=== PATIENT | female | born 1940 | race Caucasian/White ===

== ENCOUNTER 2017-03-01 21:51 | Observation (INO) | payer MEDICARE, OTHER ==
[~2017-03-01] VITALS: Ht 166.4 cm; Wt 71.5 kg
[2017-03-01] VITALS (9 sets, daily range): BP systolic 125–172; BP diastolic 82–104; PULSE 29–100; RESP 17–29; O2SAT 96–99
[2017-03-01 16:40] LABS: BASOPHILS % (AUTO) 0.6 % (0-3); EOSINOPHILS % (AUTO) 1.9 % (0-5); Mean Corpuscular Hemoglobin 33.1 pg (27.0-35.0); Mean Corpuscular Volume 92.4 fL (81-100); NEUTROPHILS % (AUTO) 59.6 % (40-74); Platelet Count 350 bil/L (150-400)
[2017-03-01 17:05] LABS: TROPONIN T < 0.010 ug/L (0.0-0.011)
[2017-03-01 17:11] LABS: Magnesium 1.9 mg/dL (1.6-2.6)
--- NOTE | 2017-03-01 17:27 | ED.REPORT ---
HPI-Syncope Date of Service Mar 01, 2017 ED Provider: Abner Garcia MD This is a 76-year-old female with history of hypertension and diabetes, who presents for almost passing out. She states for the last 2 weeks she has been feeling like passing out whenever she stands and is relieved with lying down. Her symptoms are reproducible with changing position from a lying to sitting position or sitting to standing position. Nothing has seemed to make it better except for lying back down. She has not had anything like this in the past. She mentions having chills periodically for the last week. Denies fever, nausea , vomiting, chest pain, shortness of breath, coughs, abdominal pain, diarrhea, and constipation. She does note she has been having a dry mouth and dry skin lately. Nursing Notes Stated Complaint: DIZZINESS Chief Complaint: General Complaint Nursing Notes Reviewed: Yes Allergies: Coded Allergies: Penicillins (Verified Allergy, Mild, RASH, 03/01/17) Uncoded Allergies: SKELETAL MUSCLE RELAXANTS (Allergy, Unknown, 07/28/04) PASSES OUT "BREAKS OUT" Scheduled Citalopram (Citalopram) 20 Mg Tablet 20 MG PO DAILY Fosinopril Sodium (Fosinopril Sodium) 40 Mg Tablet 60 MG PO DAILY Gabapentin (Gabapentin) 600 Mg Tablet 600 MG PO 6 TIMES DAILY Triamcinolone Acet (Triamcinolone Acetonide Ointment) 1 Applic/0.25 Gm Oint 1 APPLIC TOP BID Scheduled PRN Prochlorperazine Maleate (Prochlorperazine) 10 Mg Tablet 10 MG PO Q8 PRN PRN For Nausea/Vomiting oxyCODONE-Acetaminophen 10-325 mg (oxyCODONE-Acetaminophen 10-325 mg) 1 Each Tablet 1 TABLET PO Q8H PRN PRN For Pain General Time Seen by Provider: 16:30 Chief Complaint [place] faint Syncope Description: Frequent recent episodes Hx Obtained From: Patient Past Medical History Past Medical History Chronic back pain- Administers Morphine and Oxycodone daily Hypertension, diabetes Reports: Diabetes mellitus, Hypertension Past Surgical History 6 inches of colon removed after diagnosed with diverticulitis. Smoking History Current Every Day Smoker Social History Alcohol Use: Denies alcohol use Ambulatory Status Independent Review of Systems Constitutional: Reports: Chills, Denies: Fever Cardiovascular: Denies: Chest pain GI: Denies: Abdominal pain, Constipation, Diarrhea, Nausea, Vomiting Neurologic: Denies: Confusion, Headache Complete sys rev & neg: except as marked. Physical Exam Initial Vital Signs Vital Signs (First) Date Time Temp Pulse Resp B/P Pulse Ox O2 Delivery O2 Flow Rate FiO2 03/01/17 16:23 37.0 97 24 144/93 98 Room Air Initial VS: Reviewed General/Constitutional: Awake, Alert, No acute distress, Not toxic appearing Respiratory / Chest: Breath sounds NL, Breath sounds = bilat, No respiratory distress, No wheezing Cardiovascular: Heart rate NL, Regular rhythm, Heart sounds NL, No murmurs Lower Extremity / Pelvis / MS: No swelling Neurologic: Oriented X3, Speech NL, CN II - XII intact Head / Eyes: Atraumatic, Normocephalic, PERRL Abdomen: Soft, Non-tender, No guarding, BS normoactive Interpretation & Diagnostics Lab Results Interpretation Result Diagram: 03/01/17 1636 03/01/17 1636 Test 03/01/17 16:36 03/01/17 18:47 03/01/17 19:00 White Blood Count 9.6th/mm3 (3.8-10.1) Red Blood Count 5.13mil/mm3 (3.90-5.20) Hemoglobin 17.0g/dL (12.0-15.6) Hematocrit 47.4% (35.0-46.0) Mean Corpuscular Volume 92.4fL (81-100) Mean Corpuscular Hemoglobin 33.1pg (27.0-35.0) Mean Corpuscular Hemoglobin Concent 35.9% (32.0-37.0) Red Cell Distribution Width 11.7% (12.3-15.4) Platelet Count 350bil/L (150-400) Neutrophils (%) (Auto) 59.6% (40-74) Lymphocytes (%) (Auto) 28.5% (14-46) Monocytes (%) (Auto) 9.0% (4-12) Eosinophils (%) (Auto) 1.9% (0-5) Basophils (%) (Auto) 0.6% (0-3) Sodium Level 136mEq/L (134-144) Potassium Level 3.9mEq/L (3.5-5.2) Chloride Level 97mEq/L (97-108) Carbon Dioxide Level 21mmol/L (18-29) Blood Urea Nitrogen 30mg/dL (8-27) Creatinine 0.73mg/dL (0.57-1.00) Estimat Glomerular Filtration Rate 111mL/min (>59) Glucose Level 183mg/dL (60-99) Calcium Level 9.7mg/dL (8.5-10.1) Magnesium Level 1.9mg/dL (1.6-2.6) Total Bilirubin 0.5mg/dL (0.0-1.2) Aspartate Amino Transf (AST/SGOT) 19U/L (0-50) Alanine Aminotransferase (ALT/SGPT) 23U/L (0-32) Alkaline Phosphatase 93U/L (25-165) Troponin T < 0.010ug/L (0.0-0.011) Total Protein 7.5g/dL (6.4-8.4) Albumin 4.3g/dL (3.4-5.0) Thyroid Stimulating Hormone (TSH) 1.460uIU/mL (0.450-4.500) Hold Urine Received (Received) Urine Color Yellow (YELLOW) Urine Appearance Clear (CLEAR,HAZY) Urine pH 5.5 (5.0-8.0) Urine Specific [place] 1.020 (1.003-1.035) Urine Protein 30mg/dL (NEG,TRACE) Urine Glucose (UA) Negativemg/dL (NEGATIVE) Urine Ketones Tracemg/dL (NEGATIVE) Urine Occult Blood Negative (NEGATIVE) Urine Nitrite Negative (NEGATIVE) Urine Bilirubin Negative (NEGATIVE) Urine Urobilinogen Normalmg/dL (NORMAL) Urine Leukocyte Esterase Small (NEGATIVE) Urine RBC 0-2/hpf (0-2) Urine WBC 6-10/hpf (0-5) Urine Epithelial Cells Moderate/hpf (NONE-MOD) Urine Crystals None seen (NONE SEEN) Urine Bacteria Few/hpf (NONE-FEW) Urine Hyaline Casts None/lpf (NONE) Urine Granular Casts None seen (NONE SEEN) Urine Waxy Casts None seen (NONE SEEN) Urine Red Blood Cell Casts None seen (NONE SEEN) Urine White Blood Cell Casts None seen (NONE SEEN) Urine Mucus None seen (None Seen) Urine Trichomonas None seen (NONE SEEN) Urine Yeast None (NONE SEEN) Urinalysis Comment None Urine Culture Reflexed Indicated Re-Eval/Medical Decision Med Decision/Clinical Course This is 76-year-old female with history of diabetes and hypertension who presents for near syncopal episode associated with changing positions. She does not have any focal symptoms and her symptoms are reproducible which was noted when checking orthostatic vital signs. This is likely related to orthostatic hypotension secondary to dehydration. 1 L normal saline was given and she did not have any improvement in her symptoms. Given this is a new finding for her, would like to admit her to the hospital for observation. Re-Evaluation/Progress : )( Re-Eval Neurologic Exam: Alert, Oriented X3 Patient Status: Condition unchanged Evaluation: Lungs clear Re-Evaluation/Progress Note: Patient was reevaluated after 1 L normal saline given. He did not have any improvement in her symptoms. Consultation : Referral / Consult Name: Reuben Zayas MD Consulted With: Hospitalist Dairy Products Maker: Agrees with plan, Accepts admit Discharge & Departure Impression: Primary Impression: Orthostatic dizziness Disposition: ADMITTED TO HOSPITAL Discharge Condition All VS Reviewed: Yes Condition: Stable Referrals: Wilda Kan MD (PCP) Attending Statement I personally saw this patient with Dr Smith on 03/01. agree with above, not also she is on an KEVAN I which is likely contributing. No evidence of sepsis or acute bleeding. Reuben Smith DO Mar 01, 2017 17:24 Abner Garcia MD Mar 02, 2017 00:06
[2017-03-01 19:28] LABS: APPEARANCE,URINE CLEAR (CLEAR,HAZY); COLOR,URINE YELLOW (YELLOW); PH,URINE 5.5 (5.0-8.0)
[2017-03-01 19:29] LABS: OCCULT BLOOD,URINE NEGATIVE (NEGATIVE); UROBILINOGEN,URINE NORMAL (NORMAL)
--- NOTE | 2017-03-01 20:32 | PCM.HPMED ---
Subjective Date of Service Mar 01, 2017 Primary Provider: Admitting Physician: Primary Care Physician: Rahat Attending Physician: Chief Complaint: Patient is a 76-year-old female with a medical history significant for diabetes type II, hypertension, and chronic back pain presents with near syncope. History of Present Illness: Per patient, reports continued dizziness and lightheadedness whenever patient transition from sitting to standing position. Patient never had this before, patient denies any chest pain, palpitation, or shortness of breath. Yesterday, patient reports weakness the knee when standing up and collapsed onto the floor. Patient maintained consciousness throughout and did not hit head or suffer any other trauma as she fell. No bowel or bladder incontinence. She states that symptoms started about 2-3 weeks ago worsened within the past 2-3 days. Patient denies taking any new medication, and in fact has not been taking any of her medication in the past 3 days. Patient does admits to low fluid intake, often just a 12 ounce bottle water daily. Patient denies any weight loss weight, and stiffness, muscle rigidity. No history of Parkinson's disease. In the ED, patient was positive for orthostatic hypotension, all with CBC positive for hemoglobin 17 and hematocrit 47.4, additionally CMP positive for only BUN of 30/creatinine 0.73. TSH 1.46 normal. EKG normal sinus with signs of left ventricular hypertrophy. Patient was given 1 L of normal saline without symptomatic improvements, and thus admits patients to observation. Review of Systems: A comprehensive review of systems was conducted with the patient and found to be negative except as above in the History of Present Illness. Allergies Coded Allergies: Penicillins (Verified Allergy, Mild, RASH, 03/01/17) Uncoded Allergies: SKELETAL MUSCLE RELAXANTS (Allergy, Unknown, 07/28/04) PASSES OUT "BREAKS OUT" Home Medications Based upon medical reconciliation Citalopram 20 mg daily Fosinopril 60 mg daily Gabapentin 600 mg q.4.h Oxycodone acetaminophen 10 mg 325 mg every 8 hours as needed Prochlorperazine 10 mg every 8 hours as needed PMH Diabetes type II Hypertension Chronic back pain Tobacco use disorder Depression Diverticulitis Surgical History Partial colectomy Family History Mother secondary to asthma Father secondary to prostate cancer Social History Hx Alcohol Use: No Hx Substance Use: No Smoking Status: Current Every Day Smoker (15 years 2 packs daily) Living Arrangement: Alone Exam Vital Signs Vital Sign - Last Date Time Temp Pulse Resp B/P Pulse Ox O2 Delivery O2 Flow Rate FiO2 03/01/17 20:14 37.0 88 27 148/96 99 Room Air Exam General: No acute distress, appropriately interactive HEENT: Normocephalic, atraumatic. PERRLA, EOMI, Anicteric sclerae, dry mouth Neck: No lymphadenopathy or thyromegaly. No JVD, No bruits. Cardiovascular: Regular rate and rhythm with no murmurs, rubs, or gallops appreciated Pulmonary: b/l air sound with no crackles, wheezes, or rhonchi. no use of accessory muscles. Abdomen: +Bowel sound, Soft, nontender, nondistended. Extremities: No clubbing or cyanosis, no lymphedema, no b/l lower leg edema Skin: Normal temperature and texture; no rash. No visualized skin ulcer. Decreased skin turgor Neurological: CN II-VII grossly intact, moving equally on all 4 extremities, heel to lyons negative, [id number]-[id number] negative, no cogwheel rigidity Psychiatric: Normal mood and affect. AOx3 Lab and Diagnostics Result Diagram: 03/01/17 1636 03/01/17 1636 Assessment & Plan Patient is a 76-year-old female with medical history significant for diabetes type II, hypertension, and chronic back pain admitted for near syncope, orthostatic hypotension. Near syncope, present on admission, active -Likely dehydration, possible autonomic dysregulation, endocrine related, medication related -Labs TSH, vitamin B12, A1c ordered -Echocardiogram in a.m., place on telemetry -holding home gabapentin 600mg Q4H per med rec. Dehydration -decrease skin turgor, dry mouth, BUN/Cr >20 -Start NS 100cc/hr. received 1L NS in ED Diabetes Type II, diet control -Lispro low-dose sliding scale -A1c pending Hypertension -Continue home fosinopril Depression -Cont home citalopram Chronic back pain -Percocet 5-325mg PRN -holding gabapentin as above CODE STATUS: Full code DVT prophylaxis heparin subcutaneous Patient Status: Patient is admitted under observation status with expected length of stay LESS than 2 midnights due to severity of presenting symptoms, risk of adverse event, and complexity of treatment plan. VTE Prophylaxis: Sub-Q Heparin (Unfractionated) Resuscitation Status: CPR: Attempt Resuscitation Ismael Davison DO Mar 01, 2017 20:32 Reuben Zayas MD Mar 02, 2017 19:09
[~2017-03-01 21:51] MED LIST: 0.9% Sodium Chloride 1,000 ML IV ONE; 0.9% Sodium Chloride 1,000 ML IV SCH; Alum-Mag Hydrox-Simeth 30 mL Suspension PO PRN; CITA20TA11 PO; FOSI40TA2 PO; GABA600T2 PO; Glucose 40% Oral Gel 15 Gm Tube PO PRN; KEN1O TOP; OXYC-466 PO; PROC10TA PO; Polyethylene Glycol (PEG) 17 Gm Powder PO PRN; oxyCODONE-Acetamin 5-325 mg Tablet PO PRN
[2017-03-01] MEDS ORDERED: Insulin LISPRO 300 Unit/3 mL Inj SUBQ SCH (22:00)
[2017-03-01] MEDS ORDERED: 0.9% Sodium Chloride 1,000 ML IV SCH (22:25)
[2017-03-02] VITALS (9 sets, daily range): BP systolic 111–168; BP diastolic 67–91; PULSE 68–95; RESP 16–18; O2SAT 96–98
[2017-03-02] MEDS: Heparin 5,000 Unit/mL Inj SUBQ SCH ×3 (00:33→16:57)
--- NOTE | 2017-03-02 06:28 | PCM.PNMED ---
Subjective Date of Service Mar 02, 2017 Subjective Patient is seen and examined. She says that she is slightly better after IV fluids but still very dizzy when she gets up. With the exception of this extreme dizziness her neurological exam is fairly normal. She states that she did not have issues with dizziness until 2-3 weeks ago when this all started, she feels that he has been getting worse since then. She was seen at [facility] prior to this, she does not recall being treated with anything. So, she came to the [facility] ER. Patient lives alone independently. Exam Vital Signs Vital Sign - Last Date Time Temp Pulse Resp B/P Pulse Ox O2 Delivery O2 Flow Rate FiO2 03/02/17 06:06 92 03/02/17 04:30 36.7 17 150/83 97 Room Air Intake and Output 03/01/17 03/01/17 03/02/17 Cumulative From/Thru 15:00 23:00 07:00 03/01/17 16:23 - 03/02/17 05:44 Intake Total 1000 ml 1395 ml 2395 ml Output Total 550 ml 550 ml Balance 1000 ml 845 ml 1845 ml Intake Oral 800 ml 800 ml IV Total 1000 ml 595 ml 1595 ml Output Urine Total 550 ml 550 ml # Bowel Movements 0 0 Exam Gen. appearance: To the dirt and on her feet nails have some dirt in them, microcytic, cooperative HEENT: Normocephalic, atraumatic Heart: Regular rate and rhythm no S3-S4 murmurs Lungs: Clear to auscultation no crackles or wheezes Abdomen soft nontender Extremities no swelling Musculoskeletal 4/5 weakness in lower extremities, 4+ out of 5 in finger general practice Neurological: Ani's patient was unable to perform because she was unable to stand up due to dizziness. CN II-12 grossly normal gagging is deferred Itxwxl-cm-iomy unremarkable alternating hands, yevz-ot-blww unremarkable, normal Babinski's, Achilles tendon reflexes are symmetric Psychological Psychiatric: No agitation or anxiety Eyes: Right sided nystagmus noted. Unable to tolerate Janey maneuver IVs and Medications IV Fluids #100 mL per hour Medications Reviewed: Medications were reviewed in detail Lab and Diagnostics Result Diagram: 03/01/17 1636 03/02/17 0192 X-Rays, CTs and MRIs PROCEDURE: MRA ANGIOGRAM HEAD WITHOUT CONTRAST ([id number]) INDICATIONS: dizziness IMPRESSION: No stenosis or occlusion. Dictated by: Chaparro Werner M.D. on 03/02/2017 at 12:08 Approved by: Chaparro Werner M.D. on 03/02/2017 at 12:12 Assessment & Plan Patient is a 76-year-old female with medical history significant for diabetes type II, hypertension, and chronic back pain admitted for near syncope, orthostatic hypotension. Near syncope, present on admission, active -Likely dehydration, possible autonomic dysregulation, endocrine related, medication related -Labs TSH (within normal), vitamin B12(high), A1c ordered (pend) -Echocardiogram in a.m., place on telemetry: "Interpretation Summary 1. Small left ventricular cavity size with mild proximal septal thickening and normal systolic function with an estimated EF of 60-65%" -Start gabapentin at 300 3 times a day less than her home dose she is a complaining of peripheral neuropathy, also elev BP -- MRI from this a.m. showed no concern for stenosis or stroke -- Positive for Right sided horizontal nystagmus -- Ordered vestibular Therapy with PT/OT Dehydration active present on admission -decrease skin turgor, dry mouth, BUN/Cr >20 -Start NS 100cc/hr. received 1L NS in ED Diabetes Type II, diet control chronic -- She states that she does not need to be on medications for this -Lispro low-dose sliding scale -A1c pending Hypertension chronic stable -Continue home lisinopril Depression chronic stable -Cont home citalopram Chronic back pain -Hold Percocet 5-325mg PRN -gabapentin as above CODE STATUS: Full code DVT prophylaxis heparin subcutaneous Patient Status: Patient is admitted under observation status with expected length of stay LESS than 2 midnights due to severity of presenting symptoms, risk of adverse event, and complexity of treatment plan. VTE Prophylaxis: Sub-Q Heparin (Unfractionated) VTE Mechanical Devices: Intermittant Pneumatic CD Resuscitation Status: CPR: Attempt Resuscitation Time spent 30 minutes Adilene Otoole DO Mar 02, 2017 06:28
[2017-03-02] MEDS: Insulin LISPRO 300 Unit/3 mL Inj SUBQ SCH ×4 (08:00→22:00)
[2017-03-02] MEDS ORDERED: FOSINOPRIL SODIUM PO SCH (08:30)
[2017-03-02] MEDS: 0.9% Sodium Chloride 1,000 ML IV SCH ×2 (08:33→20:40)
--- NOTE | 2017-03-02 12:14 | DRSVH ---
PROCEDURE: MRA ANGIOGRAM HEAD WITHOUT CONTRAST ([id number]) INDICATIONS: dizziness TECHNIQUE: Noncontrast axial 3-D [id number] MR angiogram, with 3-dimensional maximum intensity projection (M IP) reformats of the internal carotid arteries and posterior circulation then performed. COMPARISON: None. FINDINGS: Image quality: Excellent. Anterior circulation: Intracranial internal carotid arteries demonstrate normal size and intralumina l flow signal. The flow within the paired anterior cerebral arteries is normal and symmetric. The f low within the middle cerebral arteries is normal and symmetric. There is diffusely and bilaterally d iminutive appearance of the M2 branches of the middle cerebral arteries although appear grossly paten t. The anterior communicating and right posterior communicating arteries are seen. No stenoses, occl usions, or aneurysms. Posterior circulation: Visualized portions of the vertebral arteries demonstrate normal caliber, and join to form a normal appearing basilar artery. The flow within the posterior cerebral arteries is normal and symmetric. No stenoses, occlusions, or aneurysms. IMPRESSION: No stenosis or occlusion. Dictated by: Chaparro Werner M.D. on 03/02/2017 at 12:08 Approved by: Chaparro Werner M.D. on 03/02/2017 at 12:12
--- NOTE | 2017-03-02 14:53 | DRSVH ---
[facility] [address] [place] [address] Echocardiogram Report Name: RON JAY Study Date: 03/02/2017 Height: 65 in Hospital Exam Location: [facility] Weight: 154 lb Gender: Female BSA: 1.8 m2 : 1940 Age: 76 yrs BP: 150/83 mmHg Reason For Study: NEAR SYNCOPE History: SMOKER-CURRENT Ordering Physician: Performed By: Marlene Escalante Interpretation Summary 1. Small left ventricular cavity size with mild proximal septal thickening and normal systolic function with an estimated EF of 60-65% 2. Grossly normal right ventricular size and systolic function. The estimated right atrial pressure is low 3. No evidence for significant valvular pathology There is no old study for comparison Procedure: A two-dimensional transthoracic echocardiogram with color flow and Doppler was performed. The apical views were difficult to obtain and are suboptimal in quality. There is no prior echocardiogram noted for this patient. The patient was in normal sinus rhythm during the exam. Left Ventricle: Proximal septal thickening is noted. The left ventricular cavity is small. The ejection fraction is estimated to be 60-65%. There are no obvious focal wall motion abnormalities noted but poor endocardial definition reduces the sensitivity for the detection of such. Assessment of diastolic parameters indicates a relaxation abnormality of the left ventricle, consistent with normal filling pressures. Right Ventricle: The right ventricle is grossly normal size. The right ventricle is not well visualized but function appears grossly normal. Atria: The left atrium is not well visualized. Right atrium not well visualized. There is no Doppler evidence for an interatrial shunt. Mitral Valve: The mitral valve leaflets appear mildly thickened, but open well. There is no mitral regurgitation noted. Aortic Valve: The aortic valve is trileaflet. The aortic valve is slightly calcified. There is no aortic valve stenosis. No aortic regurgitation is present. Tricuspid Valve: The tricuspid valve is not well visualized, but is grossly normal. Pulmonary artery pressures cannot be estimated because of the lack of a measurable TR jet velocity. Pulmonic Valve: The pulmonic valve is not well visualized. There is trace pulmonic regurgitation. Great Vessels: The aortic root is normal size. The ascending aorta is normal in size. There is mild luminal irregularity and echogenicity in the abdominal aorta, suggestive of aortic atherosclerotic disease. The aortic arch is normal in size. The IVC is of normal diameter and collapses greater than 50% with a sniff. This suggests a low right atrial pressure of 3 mm Hg. Pericardium/ Pleura There is no pericardial effusion. MMode/2D Measurements & Calculations LVIDd: 3.7 cm IVC diam LVOT diam: 1.8 cm LV molina. diameter/BSA LVIDs: 2.2 cm : 1.3 cm AoV Openin.3 cm(cm/m^2): 2.1 FS: 41.0 % Ao root diam EPSS: 0.26 cm IVSd: 1.1 cm Aortic Jxn: 2.5 cm LVPWd: 0.93 cm asc Aorta Diam Ao Arch Diam (Prox Trans): 2.4 cm LV sys. diameter/BSA (cm/m^2): 1.2 Doppler Measurements & Calculations Ao V2 max MV E max al MV E/A: 0.59 PA V2 max : 168.2 cm/sec : 53.6 cm/sec Med Peak E' Al : 86.8 cm/sec Ao max PG MV A max al PA mean PG : 11.3 mmHg : 91.6 cm/sec E/E' med: 7.5 Ao mean PG MV P1/2t: 99.7 msec PA Accel Time : 0.06 sec LVOT Max Al : 106.3 cm/sec NIDIA(I,D): 1.9 cm sev ratio MV dec time MV P1/2t max al Ao V2 mean LV V1 max PG : 0.33 sec : 106.4 cm/sec MVA(P1/2t): 2.2 cm2 Ao V2 VTI: 29.2 cm LV V1 VTI NIDIA(V,D): 1.7 cm2 : 21.0 cm PA V2 mean NIDIA indexed to BSA : 54.5 cm/sec (cm^2/m^2): 1.1 Reading Physician:02:52 PM
[2017-03-02] MEDS: Ondansetron 2 mg/mL 2 mL Inj IVPUSH PRN (18:04)
[2017-03-03] VITALS (10 sets, daily range): BP systolic 104–165; BP diastolic 66–89; PULSE 67–91; RESP 16–20; O2SAT 95–96
[2017-03-03] MEDS ORDERED: oxyCODONE-Acetamin 5-325 mg Tablet PO ONE (01:00)
[2017-03-03] MEDS: Heparin 5,000 Unit/mL Inj SUBQ SCH ×3 (01:19→17:39)
[2017-03-03] MEDS: 0.9% Sodium Chloride 1,000 ML IV SCH ×2 (06:43→18:44)
[2017-03-03] MEDS: Insulin LISPRO 300 Unit/3 mL Inj SUBQ SCH ×4 (08:31→22:00)
--- NOTE | 2017-03-03 13:16 | PCM.PNMED ---
Subjective Date of Service Mar 03, 2017 Subjective Patient is seen and examined. She states she is slightly better. She is sitting up in bed eating her lunch. The contact her daughter earlier turns out that her daughter , and we do not have her son-in-law's number. Patient does not get seen by physical therapy. I was able to observe patient as she got up to go to the toilet/bedside commode, and she did not appear too wobbly. She has no other concerns Exam Vital Signs Vital Sign - Last Date Time Temp Pulse Resp B/P Pulse Ox O2 Delivery O2 Flow Rate FiO2 03/03/17 08:02 36.7 67 18 133/74 95 Room Air Intake and Output 03/02/17 03/02/17 03/03/17 Cumulative From/Thru 15:00 23:00 07:00 03/01/17 16:23 - 03/03/17 05:57 Intake Total 575 ml 924 ml 2232 ml 6126 ml Output Total 600 ml 1930 ml 3080 ml Balance 575 ml 324 ml 302 ml 3046 ml Intake Oral 520 ml 1000 ml 2320 ml IV Total 575 ml 404 ml 1232 ml 3806 ml Output Urine Total 600 ml 1930 ml 3080 ml # Bowel Movements 0 0 Exam Gen.: No acute distress, sitting up eating breakfast HEENT: Hirsutism Heart: Mild systolic murmur is present with radiation to axilla Lungs: Clear to auscultation no crackles or wheezes Abdomen: Soft nondistended Eyes: Horizontal nystagmus is present on the right side, however when you move the finger close to her nose she did not have this indicating that she may have some level of farsightedness. Neurological: No focal deficits Psych: No agitation Lab and Diagnostics Result Diagram: 03/03/17 0532 03/03/17 0532 X-Rays, CTs and MRIs PROCEDURE: MRA ANGIOGRAM HEAD WITHOUT CONTRAST ([id number]) INDICATIONS: dizziness IMPRESSION: No stenosis or occlusion. Dictated by: Chaparro Werner M.D. on 03/02/2017 at 12:08 Approved by: Chaparro Werner M.D. on 03/02/2017 at 12:12 Assessment & Plan Patient is a 76-year-old female with medical history significant for diabetes type II, hypertension, and chronic back pain admitted for near syncope, orthostatic hypotension. Near syncope, present on admission, active -Likely dehydration, possible autonomic dysregulation, endocrine related, medication related -Labs TSH (within normal), vitamin B12(high), A1c ordered (pend) -Echocardiogram in a.m., place on telemetry: "Interpretation Summary 1. Small left ventricular cavity size with mild proximal septal thickening and normal systolic function with an estimated EF of 60-65%" -Start gabapentin at 300 3 times a day less than her home dose she is a complaining of peripheral neuropathy, also elev BP -- Positive for Right sided horizontal nystagmus -- Ordered vestibular Therapy with PT/OT on 03/02, they have not yet seen the patient on 03/03. -- Patient states that she had positional vertigo, room spinning sensation in the past but not at this time. -- Yesterday's scan was ordered as MRA without contrast, there was no MRI of brain, this was ordered this morning -- Consult to over the phone, who recommends CT of brain and neck as well to make sure she does not have vertebral artery occlusions. This is also ordered Orthostatic hypotension, as evidenced by the vital signs last night -- Differential includes age, Central etiologies, diabetes uncontrolled -- Pursuing the central etiology as able. Echocardiogram did not show any concern for valvular dysfunction that would have caused her symptoms Dehydration active present on admission resolved -decrease skin turgor, dry mouth, BUN/Cr >20 at admission -IV fluids cut to 50 mL/h Diabetes Type II, diet control chronic -- She states that she does not need to be on medications for this -Lispro low-dose sliding scale -A1c pending -- Hyperglycemic on the months 03/03 Hypertension chronic stable -Continue home lisinopril Depression chronic stable -Cont home citalopram Chronic back pain -Hold Percocet 5-325mg PRN , she states she never takes too many of them -gabapentin as above CODE STATUS: Full code DVT prophylaxis heparin subcutaneous Patient Status: Patient is admitted under observation status with expected length of stay LESS than 2 midnights due to severity of presenting symptoms, risk of adverse event, and complexity of treatment plan. VTE Prophylaxis: Sub-Q Heparin (Unfractionated) VTE Mechanical Devices: Intermittant Pneumatic CD Resuscitation Status: CPR: Attempt Resuscitation Time spent 30 minutes Adilene Otoole DO Mar 03, 2017 08:38
--- NOTE | 2017-03-03 15:44 | DRSVH ---
PROCEDURE: CT ANGIO HEAD AND NECK (P) INDICATIONS: extreme dizziness, check vertebral vasc TECHNIQUE: Pre-contrast 4.5 mm thick sections acquired from the foramen magnum to the vertex. After the adminis tration of intravenous contrast, 1 mm thick sections acquired from the aortic arch through the [place]. Post-contrast 4.5 mm thick sections then re-acquired from the foramen magnum to the vert ex. 3-dimensional tyqzzcx-lkjyswpjn-mlocprtlit (MIP) and/or volume rendering reformats were acquired of the central intracranial vasculature and neck separately. For radiation dose reduction, the foll owing was used: automated exposure control, adjustment of mA and/or kV according to patient size. COMPARISON: None. FINDINGS: Image quality: Excellent. BRAIN: CSF spaces: Ventricles are normal in size and shape. Basal cisterns are patent. No extra-axial flu id collections. Brain: No midline shift. No intracranial bleeds or masses. King-white matter interface appears int act. Skull and face: Calvarium and facial bones appear intact, without suspicious lesions. Orbits appear normal. Sinuses: Sinuses and mastoids are clear. HEAD CT ANGIOGRAPHY: Anterior circulation: Intracranial internal carotid arteries are normal in size and flow. The flow within the paired anterior cerebral arteries is normal and symmetric. The flow within the middle cer ebral arteries is normal and symmetric. The anterior communicating artery is seen. No aneurysms are seen. Posterior circulation: Visualized portions of the vertebral arteries demonstrate normal caliber, and join to form a normal appearing basilar artery. Flow within the posterior cerebral arteries is norm al and symmetric. No aneurysms are seen. NECK CT ANGIOGRAPHY: Carotid system: The great vessels demonstrate a conventional anatomy as they arise from the aortic a rc. The origins of the common carotid arteries appear patent. The common carotid arteries demonstr ate normal caliber and courses. The bifurcation regions are both patent with hemodynamically insigni ficant calcified atheromatous plaque. The internal carotid arteries demonstrate normal calibers and courses. Posterior circulation: The origins of the vertebral arteries both appear widely patent. The more daugherty perior extracranial portions of both vertebral arteries also demonstrate normal courses and calibers. They join to form a normal appearing basilar artery. Soft tissues: Visualized neck soft tissues demonstrate no suspicious abnormalities. Biapical emphys nish. Bones: No suspicious bony lesions. Visualized cervical spine appears normally aligned. IMPRESSION: 1. No CT evidence of acute intracranial pathology. 2. Vascular structures of the neck and head are within normal limits. 3. Biapical emphysema. Dictated by: Wilman Sanchez M.D. on 03/03/2017 at 15:35 Approved by: Wilman Sanchez M.D. on 03/03/2017 at 15:43
--- NOTE | 2017-03-03 18:07 | DRSVH ---
PROCEDURE: MRI BRAIN WITHOUT CONTRAST ([id number]) INDICATIONS: dizziness TECHNIQUE: Noncontrast axial T1 spin echo, axial T2 fast spin echo, sagittal and axial FLAIR, coronal T2 fast sp in echo, axial gradient echo, axial diffusion and ADC through the brain. COMPARISON: CT angiogram from 03/03/2017. FINDINGS: Image quality: Excellent. CSF Spaces: Basal cisterns are patent. No extra-axial fluid collections. Ventricles are normal in size and shape. Brain: Scattered foci of increased T2 signal in the subcortical and periventricular white matter mos t consistent with sequelae of chronic benign ischemic change. No intracranial masses or hemorrhage. King/white matter interface is normal. Brainstem appears normal. Diffusion-weighted images demonstr ate no acute ischemic insult. No chronic ischemic insults. Normal intravascular flow voids are pres ent. Skull and face: Calvarium has normal marrow signal. Orbits appear normal. Sinuses: Sinuses and mastoids are clear. IMPRESSION: 1. No evidence of acute intracranial pathology including no evidence of acute infarction. 2. Increased T2 signal in the subcortical and periventricular white matter most consistent with a seq uelae of chronic benign ischemic change. Dictated by: Wilman Sanchez M.D. on 03/03/2017 at 18:01 Approved by: Wilman Sanchez M.D. on 03/03/2017 at 18:05
[2017-03-04 00:45] VITALS: BP 161/81; PULSE 73; RESP 18; O2SAT 95
[2017-03-04] MEDS: Heparin 5,000 Unit/mL Inj SUBQ SCH ×2 (00:53→08:50)
[2017-03-04 04:50] VITALS: BP 151/80; PULSE 68; RESP 18; O2SAT 95
[2017-03-04] MEDS: 0.9% Sodium Chloride 1,000 ML IV SCH ×2 (05:10→09:40)
[2017-03-04 08:34] VITALS: BP 144/85; PULSE 75; RESP 18; O2SAT 96
[2017-03-04] MEDS: Insulin LISPRO 300 Unit/3 mL Inj SUBQ SCH ×2 (08:49→12:32)
[2017-03-04] MEDS: Ondansetron 2 mg/mL 2 mL Inj IVPUSH PRN (08:49)
[2017-03-04 10:26] VITALS: PULSE 70
[2017-03-04] MEDS ORDERED: Insulin GLARgine 100 Unit/mL Syringe SUBQ ONE (10:45)
--- NOTE | 2017-03-04 10:53 | PCM.PNMED ---
Subjective Date of Service Mar 04, 2017 Subjective Patient is seen and examined. She is much better, moving around in her bed. She is also able to stand up without feeling unbalanced. Night team documented that she was able to get up and use the toilet several times. In the room she is able to do this in front of me. She states that she was never told she would have to be on medications for diabetes. States that her son-in-law Don can help her with providing rides but that is the level of support he provides. Patient's scans from yesterday are all negative neurological etiologies of her dizziness. Exam Vital Signs Vital Sign - Last Date Time Temp Pulse Resp B/P Pulse Ox O2 Delivery O2 Flow Rate FiO2 03/04/17 10:26 70 03/04/17 08:34 36.6 18 144/85 96 Room Air Intake and Output 03/03/17 03/03/17 03/04/17 Cumulative From/Thru 15:00 23:00 07:00 03/01/17 16:23 - 03/04/17 06:42 Intake Total 574 ml 918 ml 1818 ml 9436 ml Output Total 2700 ml 2600 ml 8380 ml Balance 574 ml -1782 ml -782 ml 1056 ml Intake Oral 840 ml 600 ml 3760 ml IV Total 574 ml 78 ml 1218 ml 5676 ml Output Urine Total 2700 ml 2600 ml 8380 ml # Voids 5 5 # Bowel Movements 0 0 0 Exam Gen.: No acute distress, sitting up In bed HEENT: Positive for hirsutism Heart: Regular rate and rhythm no S3-S4 murmurs Lungs: Clear to auscultation no crackles or wheezes Skin: Large area of chronic dermatitis changes as before mid thoracic back Extremities: 1+ pitting edema symmetric Neurological: Patient is able to do Romberg suggested a negative arm drift. No focal deficits Psychiatric: Negative for anxiety or agitation IVs and Medications Medications Reviewed: Medications were reviewed in detail Lab and Diagnostics Result Diagram: 03/03/17 0532 03/03/17 0532 X-Rays, CTs and MRIs PROCEDURE: MRA ANGIOGRAM HEAD WITHOUT CONTRAST ([id number]) INDICATIONS: dizziness IMPRESSION: No stenosis or occlusion. Dictated by: Chaparro Werner M.D. on 03/02/2017 at 12:08 Approved by: Chaparro Werner M.D. on 03/02/2017 at 12:12 Assessment & Plan Patient is a 76-year-old female with medical history significant for diabetes type II, hypertension, and chronic back pain admitted for near syncope, orthostatic hypotension. Near syncope, present on admission, improved -Likely dehydration, possible autonomic dysregulation, endocrine related, medication related (pain medications) -Labs TSH (within normal), vitamin B12(high), A1c ordered (pend) -Echocardiogram in a.m., place on telemetry: "Interpretation Summary 1. Small left ventricular cavity size with mild proximal septal thickening and normal systolic function with an estimated EF of 60-65%" -Start gabapentin at 300 3 times a day less than her home dose she is a complaining of peripheral neuropathy, also elev BP -- Positive for Right sided horizontal nystagmus -- Ordered vestibular Therapy with PT/OT on 03/02, they have not yet seen the patient on 03/03. -- Patient states that she had positional vertigo, room spinning sensation in the past but not at this time. -- 03/02 MRA without contrast, there was no MRI of brain, this was ordered 03/03 morning: "No evidence of acute intracranial pathology including no evidence of acute infarction, periventricular white matter most consistent with a sequelae of chronic benign ischemic change." -- Consult to over the phone on 03/[address] of brain and neck as well to make sure she does not have vertebral artery occlusions. This is also ordered:"Vascular structures of the neck and head are within normal limits. -- Reviewed patient's [facility] visit records from 02/15/17, it appears that the treated her for hyponatremia and dehydration. Reviewed PCP records from Dr. whitlock which showed she has been tapered off of morphine sulfate, and now just on oxycodone 3 times a day when necessary. It appears that she has a long history of opiate. Dependence but recently admitted to being herself off. -- No overnight monitoring events, discontinue telemetry -- On 03/04, wound care and physical therapy have not seen the patient yet. awaiting their recommendations prior to discharge planning, hospice social worker [facility] PTOT for support at home Orthostatic hypotension, improved after hydration -- Differential includes age, diabetes uncontrolled, and dehydration -- Pursuing the central etiology as able. Echocardiogram did not show any concern for valvular dysfunction that would have caused her symptoms Dehydration active present on admission resolved -decrease skin turgor, dry mouth, BUN/Cr >20 at admission -IV fluids are discontinued Diabetes Type II, diet control chronic uncontrolled -- She states that she does not need to be on medications for this -Lispro low-dose sliding scale -A1c 7.7 -- She can be put on metformin at the time of discharge, holding off today due to the CTA she had 03/03. Hypertension chronic stable -Continue home lisinopril -Blood pressure was elevated this morning likely due to not having full dose gabapentin, restarted the medication and full dose Depression chronic stable -Cont home citalopram Chronic back pain -Hold Percocet 5-325mg PRN , she states she never takes too many of them -gabapentin as above CODE STATUS: Full code DVT prophylaxis heparin subcutaneous Patient Status: Patient is admitted under observation status with expected length of stay LESS than 2 midnights due to severity of presenting symptoms, risk of adverse event, and complexity of treatment plan. VTE Prophylaxis: Sub-Q Heparin (Unfractionated) VTE Mechanical Devices: Intermittant Pneumatic CD Resuscitation Status: CPR: Attempt Resuscitation Time spent 30 minutes Adilene Otoole DO Mar 04, 2017 10:53
[2017-03-04 12:54] VITALS: BP 162/82; PULSE 75; RESP 18; O2SAT 96
[2017-03-04] MEDS ORDERED: oxyCODONE-Acetamin 5-325 mg Tablet PO SCH (14:30)
[2017-03-04] MEDS ORDERED: OXYC1TAB24 PO (16:29)
[2017-03-04] MEDS ORDERED: METF500T4 PO (16:29)
[2017-03-04] MEDS ORDERED: GABA300C PO (16:34)
--- NOTE | 2017-03-04 16:34 | PCM.DIMED ---
Discharge Instructions Date of Service Mar 04, 2017 Dates of Hospitalization Mar 01, 2017 at 23:17 Discharge Diagnosis Discharge Diagnosis Dizziness secondary to diabetes, dehydration and pain medications Medication Instructions Additional med instructions Please note that your oxycodone is cut in 07/09. Please note you can start metformin on 03/05/17. F/U BMP in one week F/U with your PCP in seven- ten days Please stay well hydrated, avoid quick movements. Please use compression stockings. Diet Discharge Diet: Heart Healthy, Diabetic Activity Discharge Activity: No restrictions Call your provider Call your provider for: Fever or Chills, Shortness of breath, Bleeding, Chest pain, Vomitting, Excessive diarrhea, Weakness (unilateral) Patient Instructions Follow-up plan F/U with PCP in 7-10 days F/U BMP in one week Adilene Otoole DO Mar 04, 2017 16:33
--- NOTE | 2017-03-04 21:18 | PCM.DC.MED ---
Discharge Summary Date of Service Mar 04, 2017 Dates of Hospitalization Date of Hospital Admission Mar 01, 2017 at 23:17 Date of Discharge: Mar 04, 2017 Providers: Admitting Physician: Reuben Zayas MD Primary Care Physician: Radha Attending Physician: Adilene Barragan DO Diagnosis at Time of Discharge Diagnosis at Time of Discharge Dizziness secondary to diabetes, dehydration and pain medications Procedures XRay, CTs & MRIs PROCEDURE: MRA ANGIOGRAM HEAD WITHOUT CONTRAST ([id number]) INDICATIONS: dizziness IMPRESSION: No stenosis or occlusion. Dictated by: Chaparro Werner M.D. on 03/02/2017 at 12:08 Approved by: Chaparro Wrener M.D. on 03/02/2017 at 12:12 - PROCEDURE: MRI BRAIN WITHOUT CONTRAST ([id number]) INDICATIONS: dizziness IMPRESSION: 1. No evidence of acute intracranial pathology including no evidence of acute infarction. 2. Increased T2 signal in the subcortical and periventricular white matter most consistent with a sequelae of chronic benign ischemic change. Dictated by: Wilman Sanchez M.D. on 03/03/2017 at 18:01 Approved by: Wilman Sanchez M.D. on 03/03/2017 at 18:05 PROCEDURE: MRA ANGIOGRAM HEAD WITHOUT CONTRAST ([id number]) INDICATIONS: dizziness IMPRESSION: No stenosis or occlusion. Dictated by: Chaparro Werner M.D. on 03/02/2017 at 12:08 Approved by: Chaparro Werner M.D. on 03/02/2017 at 12:12 Brief History Per patient, reports continued dizziness and lightheadedness whenever patient transition from sitting to standing position. Patient never had this before, patient denies any chest pain, palpitation, or shortness of breath. Yesterday, patient reports weakness the knee when standing up and collapsed onto the floor. Patient maintained consciousness throughout and did not hit head or suffer any other trauma as she fell. No bowel or bladder incontinence. She states that symptoms started about 2-3 weeks ago worsened within the past 2-3 days. Patient denies taking any new medication, and in fact has not been taking any of her medication in the past 3 days. Patient does admits to low fluid intake, often just a 12 ounce bottle water daily. Patient denies any weight loss weight, and stiffness, muscle rigidity. No history of Parkinson's disease. In the ED, patient was positive for orthostatic hypotension, all with CBC positive for hemoglobin 17 and hematocrit 47.4, additionally CMP positive for only BUN of 30/creatinine 0.73. TSH 1.46 normal. EKG normal sinus with signs of left ventricular hypertrophy. Patient was given 1 L of normal saline without symptomatic improvements, and thus admits patients to observation. Hospital Course Patient is a 76-year-old female with medical history significant for diabetes type II, hypertension, and chronic back pain admitted for near syncope, orthostatic hypotension. Near syncope, present on admission, improved -Likely dehydration, possible autonomic dysregulation, endocrine related, medication related (pain medications) -Labs TSH (within normal), vitamin B12(high), A1c ordered (pend) -Echocardiogram in a.m., place on telemetry: "Interpretation Summary 1. Small left ventricular cavity size with mild proximal septal thickening and normal systolic function with an estimated EF of 60-65%" -Start gabapentin at 300 3 times a day less than her home dose she is a complaining of peripheral neuropathy, also elev BP -- Positive for Right sided horizontal nystagmus -- Ordered vestibular Therapy with PT/OT on 03/02, they have not yet seen the patient on 03/03. -- Patient states that she had positional vertigo, room spinning sensation in the past but not at this time. -- 03/02 MRA without contrast, there was no MRI of brain, this was ordered 03/03 morning: "No evidence of acute intracranial pathology including no evidence of acute infarction, periventricular white matter most consistent with a sequelae of chronic benign ischemic change." -- Consult to over the phone on 03/[address] of brain and neck as well to make sure she does not have vertebral artery occlusions. This is also ordered:"Vascular structures of the neck and head are within normal limits. -- Reviewed patient's [facility] ED visit records from 02/15/17, it appears that the treated her for hyponatremia and dehydration. Reviewed PCP records from Dr. whitlock which showed she has been tapered off of morphine sulfate, and now just on oxycodone 3 times a day when necessary. It appears that she has a long history of opiate. Dependence but recently admitted to being herself off. -- No overnight monitoring events, discontinue telemetry -- On 03/04, wound care has seen the patient and determined that patient had a burn from a heating pad overuse. We recommend distant light moisturizer no hydrocortisone - On 03/04, physical therapy has seen the patient and cleared her for home discharge by private vehicle. They noted no concern for BPPV. -- Patient is moving around well, not feeling dizzy, tolerating normal diet. I counseled her on cutting down in her pain medication further as her symptoms have indeed improved then pain medications were reduced. Patient is agreeable to this Orthostatic hypotension, improved after hydration and reduction in pain medication -- Differential includes age, diabetes uncontrolled, and dehydration -- Pursuing the central etiology as able. Echocardiogram did not show any concern for valvular dysfunction that would have caused her symptoms Dehydration active present on admission resolved -decrease skin turgor, dry mouth, BUN/Cr >20 at admission -IV fluid hydration is provided Diabetes Type II, diet control chronic uncontrolled -- She states that she does not need to be on medications for this -Lispro low-dose sliding scale -A1c 7.7 -- She can be put on metformin at the time of discharge, holding off today due to the CTA she had 03/03. -- Patient may start metformin on 03/05 Hypertension chronic stable -Continue home lisinopril -Blood pressure was elevated this morning likely due to not having full dose gabapentin, restarted the medication and full dose Depression chronic stable -Cont home citalopram Chronic back pain stable -Patient is asked to cut her pain meds to 3 times a day oxycodone 5/3 25 PO By mouth-gabapentin as above CODE STATUS: Full code DVT prophylaxis heparin subcutaneous Patient Status: Patient is admitted under observation status with expected length of stay LESS than 2 midnights due to severity of presenting symptoms, risk of adverse event, and complexity of treatment plan. Exam Vital Signs (Last) Date Time Temp Pulse Resp B/P Pulse Ox O2 Delivery O2 Flow Rate FiO2 03/04/17 13:10 Room Air 03/04/17 12:54 36.7 75 18 162/82 96 Exam Gen.: No acute distress, sitting up In bed HEENT: Positive for hirsutism Heart: Regular rate and rhythm no S3-S4 murmurs Lungs: Clear to auscultation no crackles or wheezes Skin: Large area of chronic changes over mid thoracic back Extremities: 1+ pitting edema symmetric Neurological: Pt is moving around w/o difficulty/dizziness. Neg Romberg. No focal deficits Psychiatric: Negative for anxiety or agitation Test 03/01/17 16:36 03/01/17 18:47 03/01/17 19:00 03/02/17 04:15 White Blood Count 9.6th/mm3 (3.8-10.1) Red Blood Count 5.13mil/mm3 (3.90-5.20) Mean Corpuscular Volume 92.4fL (81-100) Mean Corpuscular Hemoglobin 33.1pg (27.0-35.0) Mean Corpuscular Hemoglobin Concent 35.9% (32.0-37.0) Red Cell Distribution Width 11.7% (12.3-15.4) Platelet Count 350bil/L (150-400) Neutrophils (%) (Auto) 59.6% (40-74) Lymphocytes (%) (Auto) 28.5% (14-46) Monocytes (%) (Auto) 9.0% (4-12) Eosinophils (%) (Auto) 1.9% (0-5) Basophils (%) (Auto) 0.6% (0-3) Magnesium Level 1.9mg/dL (1.6-2.6) Total Bilirubin 0.5mg/dL (0.0-1.2) Aspartate Amino Transf (AST/SGOT) 19U/L (0-50) Alanine Aminotransferase (ALT/SGPT) 23U/L (0-32) Alkaline Phosphatase 93U/L (25-165) Troponin T < 0.010ug/L (0.0-0.011) Total Protein 7.5g/dL (6.4-8.4) Albumin 4.3g/dL (3.4-5.0) Vitamin B12 Level 1583pg/mL (211-946) Thyroid Stimulating Hormone (TSH) 1.460uIU/mL (0.450-4.500) Hold Urine Received (Received) Urine Color Yellow (YELLOW) Urine Appearance Clear (CLEAR,HAZY) Urine pH 5.5 (5.0-8.0) Urine Specific [place] 1.020 (1.003-1.035) Urine Protein 30mg/dL (NEG,TRACE) Urine Glucose (UA) Negativemg/dL (NEGATIVE) Urine Ketones Tracemg/dL (NEGATIVE) Urine Occult Blood Negative (NEGATIVE) Urine Nitrite Negative (NEGATIVE) Urine Bilirubin Negative (NEGATIVE) Urine Urobilinogen Normalmg/dL (NORMAL) Urine Leukocyte Esterase Small (NEGATIVE) Urine RBC 0-2/hpf (0-2) Urine WBC 6-10/hpf (0-5) Urine Epithelial Cells Moderate/hpf (NONE-MOD) Urine Crystals None seen (NONE SEEN) Urine Bacteria Few/hpf (NONE-FEW) Urine Hyaline Casts None/lpf (NONE) Urine Granular Casts None seen (NONE SEEN) Urine Waxy Casts None seen (NONE SEEN) Urine Red Blood Cell Casts None seen (NONE SEEN) Urine White Blood Cell Casts None seen (NONE SEEN) Urine Mucus None seen (None Seen) Urine Trichomonas None seen (NONE SEEN) Urine Yeast None (NONE SEEN) Urinalysis Comment None Urine Culture Reflexed Indicated Hemoglobin A1c 7.7% (4.8-5.6) Triglycerides Level 173mg/dL (0-149) Cholesterol Level 146mg/dL (100-199) LDL Cholesterol, Calculated 66.400mg/dL (0-99) VLDL Cholesterol 34.600mg/dL HDL Cholesterol 45mg/dL (>39) Cholesterol/HDL Ratio 3.24 (0.0-4.4) Cortisol 10.4ug/dL (.) Test 03/03/17 05:32 Hemoglobin 12.5g/dL (12.0-15.6) Hematocrit 35.7% (35.0-46.0) Sodium Level 140mEq/L (134-144) Potassium Level 3.7mEq/L (3.5-5.2) Chloride Level 103mEq/L (97-108) Carbon Dioxide Level 23mmol/L (18-29) Blood Urea Nitrogen 17mg/dL (8-27) Creatinine 0.85mg/dL (0.57-1.00) Estimat Glomerular Filtration Rate 93mL/min (>59) Glucose Level 248mg/dL (60-99) Calcium Level 8.2mg/dL (8.5-10.1) Discharge Medications Discharge Medications Citalopram (Citalopram) 20 Mg Tablet 20 MG PO DAILY (Reported) Fosinopril Sodium (Fosinopril Sodium) 40 Mg Tablet 60 MG PO DAILY (Reported) Gabapentin (Neurontin) 300 Mg Capsule 600 MG PO TID Prescribed by: ADILENE BARRAGAN DO Metformin (Metformin) 500 Mg Tablet 500 MG PO BID Prescribed by: ADILENE BARRAGAN DO oxyCODONE-Acetaminophen 5-325 mg (oxyCODONE-Acetaminophen 5-325 mg) 1 Each Tablet 1 TAB PO Q8H Prescribed by: ADILENE BARRAGAN DO Additional med instructions Please note that your oxycodone is cut in 07/09. Please note you can start metformin on 03/05/17. F/U BMP in one week F/U with your PCP in seven- ten days Please stay well hydrated, avoid quick movements. Please use compression stockings. Followup Plan Follow-up plan F/U with PCP in 7-10 days F/U BMP in one week Discharge Diet: Heart Healthy, Diabetic Discharge Activity: No restrictions Time spent Greater than 30 minutes was spent in preparation of discharge with greater than 50% of that time dedicated to patient counseling and coordination of care. Adilene Barragan DO Mar 04, 2017 16:36
== END 2017-03-04 17:30 | disposition home or self-care (01) ==
LOC: OSC 23:17
PROVIDERS: ADMIT Hospitalist; ATTEND Family Medicine
DX: R42 Dizziness and giddiness (principal); E11.9 Type 2 diabetes mellitus without complications; E86.0 Dehydration; I10 Essential (primary) hypertension; M54.9 Dorsalgia, unspecified; F32.9 Major depressive disorder, single episode, unspecified; Z79.891 Long term (current) use of opiate analgesic; F17.210 Nicotine dependence, cigarettes, uncomplicated

== ENCOUNTER 2017-03-08 19:22 | Inpatient (IN) | payer MEDICARE, OTHER ==
[~2017-03-08] VITALS: Ht 165.1 cm; Wt 69.0 kg
[~2017-03-08 19:22] MED LIST changes: -0.9% Sodium Chloride 1,000 ML IV ONE; -0.9% Sodium Chloride 1,000 ML IV SCH; -Alum-Mag Hydrox-Simeth 30 mL Suspension PO PRN; +GABA300C PO; -GABA600T2 PO; -Glucose 40% Oral Gel 15 Gm Tube PO PRN; -KEN1O TOP; +METF500T4 PO; -OXYC-466 PO; +OXYC1TAB24 PO; -PROC10TA PO; -Polyethylene Glycol (PEG) 17 Gm Powder PO PRN; -oxyCODONE-Acetamin 5-325 mg Tablet PO PRN
[2017-03-08 19:28] VITALS: BP 106/71; PULSE 107; RESP 18; O2SAT 99
--- NOTE | 2017-03-08 19:30 | ED.REPORT ---
HPI-Syncope Date of Service Mar 08, 2017 ED Provider: Eliu Garcia DO Pt is a 76 old female with a history of COPD, type II DM, and HTN who presents to the ED complaining of syncope onset 4 days ago. She complains of a ground level fall today secondary to her syncope that resulted in head pain. She denies chest pain, SOB, vomiting, diarrhea, fever, and dysuria. Per pt, she was walking to the bathroom when she fell, causing her to hit the left side of her head. The pt presented to [facility] on 03/01/17 and she was admitted for near syncope and dehydration. Nursing Notes Stated Complaint: FAINTING, FALLS Chief Complaint: General Complaint Nursing Notes Reviewed: Yes Allergies: Coded Allergies: Penicillins (Verified Allergy, Mild, RASH, 03/01/17) Uncoded Allergies: SKELETAL MUSCLE RELAXANTS (Allergy, Unknown, 07/28/04) PASSES OUT "BREAKS OUT" Scheduled Citalopram (Citalopram) 20 Mg Tablet 20 MG PO DAILY Fosinopril Sodium (Fosinopril Sodium) 40 Mg Tablet 60 MG PO DAILY Gabapentin (Neurontin) 300 Mg Capsule 600 MG PO TID Metformin (Metformin) 500 Mg Tablet 500 MG PO BID oxyCODONE-Acetaminophen 5-325 mg (oxyCODONE-Acetaminophen 5-325 mg) 1 Each Tablet 1 TAB PO Q8H General Time Seen by Provider: 19:50 Chief Complaint Other (syncope) Hx Obtained From: Patient Arrived By: Walk-in Onset Occurred: Just prior to arrival Symptom Duration: Duration unknown Location: : Head Quality: Painful Radiation: Does not radiate Severity: Current: Moderate Severity: Maximum: Moderate Recent Healthcare: Recent doctor visit, Recent hospitalization Similar Sx Previous: Yes Past Medical History Past Medical History Notes: Admitted to [facility] for dehydration and syncope Past Medical History Chronic back pain- Administers Morphine and Oxycodone daily Arthritis Reports: COPD, Diabetes mellitus (type II), Hypertension Reports: Depression Past Surgical History 6 inches of colon removed after diagnosed with diverticulitis. Family History Mother secondary to asthma Father secondary to prostate cancer Smoking History Current Every Day Smoker (15 years 2 packs daily) Social History Alcohol Use: Denies alcohol use Drug Use: Denies drug use Ambulatory Status Independent Review of Systems + Head pain Constitutional: Denies: Fever Respiratory: Denies: Shortness of breath Cardiovascular: Denies: Chest pain GI: Denies: Diarrhea, Vomiting Neurologic: Reports: Change LOC, Syncope Complete sys rev & neg: except as marked. Additional Review of Systems Female: Denies: Dysuria Physical Exam Initial Vital Signs Vital Signs (First) Date Time Temp Pulse Resp B/P Pulse Ox O2 Delivery O2 Flow Rate FiO2 03/08/17 19:28 36.7 107 18 106/71 99 Room Air Initial VS: Reviewed Neck: Supple, Full range of motion Abdomen / GI: Soft, Non-tender Upper Extremities: Vascular intact, Neuro intact Skin: Warm, Dry, No cyanosis Psychiatric: Mood/affect normal, Behavior normal General/Constitutional: Awake, Alert Respiratory / Chest: Atraumatic, Breath sounds NL, Breath sounds = bilat Cardiovascular: Heart rate NL, Regular rhythm, Heart sounds NL Lower Extremity / Pelvis / MS: Atraumatic, Full range of motion Neurologic: Oriented X3, Speech NL Slow to answer HEAD/EYES: Signs of left head trauma with swelling and abrasion. No diplopia. Mouth: Positive: Mucous membranes dry Interpretation & Diagnostics CT ANGIOGRAM CHEST: IMPRESSION: No acute occlusive PE. Atherosclerotic disease. Pulmonary emphysema , and mild accentuation of the pulmonary interstitium. Close clinical imaging surveillance for developing interstitial pulmonary edema advised. Other findings above. Transmitted to the ED at 22:19 by Florina Graves M.D. Lab Results Interpretation Result Diagram: 03/08/17193903/08/171939 Test 03/08/17 19:40 03/08/17 23:31 03/08/17 23:50 White Blood Count 10.4th/mm3 (3.8-10.1) Red Blood Count 5.04mil/mm3 (3.90-5.20) Hemoglobin 16.7g/dL (12.0-15.6) Hematocrit 47.4% (35.0-46.0) Mean Corpuscular Volume 94.0fL (81-100) Mean Corpuscular Hemoglobin 33.1pg (27.0-35.0) Mean Corpuscular Hemoglobin Concent 35.2% (32.0-37.0) Red Cell Distribution Width 12.0% (12.3-15.4) Platelet Count 394bil/L (150-400) Neutrophils (%) (Auto) 62.1% (40-74) Lymphocytes (%) (Auto) 24.1% (14-46) Monocytes (%) (Auto) 10.4% (4-12) Eosinophils (%) (Auto) 1.2% (0-5) Basophils (%) (Auto) 0.8% (0-3) Prothrombin Time 10.7sec (8.1-12.5) Prothromb Time International Ratio 1.00ratio D-Dimer 1.15mg/L FEU (<0.50) Sodium Level 136mEq/L (134-144) Potassium Level 4.3mEq/L (3.5-5.2) Chloride Level 94mEq/L (97-108) Carbon Dioxide Level 20mmol/L (18-29) Blood Urea Nitrogen 32mg/dL (8-27) Creatinine 1.05mg/dL (0.57-1.00) Estimat Glomerular Filtration Rate 73mL/min (>59) Glucose Level 162mg/dL (60-99) Calcium Level 10.0mg/dL (8.5-10.1) Magnesium Level 1.8mg/dL (1.6-2.6) Total Bilirubin 0.3mg/dL (0.0-1.2) Aspartate Amino Transf (AST/SGOT) 22U/L (0-50) Alanine Aminotransferase (ALT/SGPT) 26U/L (0-32) Alkaline Phosphatase 109U/L (25-165) Pro-B-Type Natriuretic Peptide 228.8pg/mL (0-738) Total Protein 7.4g/dL (6.4-8.4) Albumin 4.3g/dL (3.4-5.0) Troponin T 0.010ug/L (0.0-0.011) Urine Color Yellow (YELLOW) Urine Appearance Hazy (CLEAR,HAZY) Urine pH 5.0 (5.0-8.0) Urine Specific [place] 1.010 (1.003-1.035) Urine Protein Tracemg/dL (NEG,TRACE) Urine Glucose (UA) Negativemg/dL (NEGATIVE) Urine Ketones Tracemg/dL (NEGATIVE) Urine Occult Blood Trace (NEGATIVE) Urine Nitrite Negative (NEGATIVE) Urine Bilirubin Negative (NEGATIVE) Urine Urobilinogen Normalmg/dL (NORMAL) Urine Leukocyte Esterase Trace (NEGATIVE) Urine RBC 0-2/hpf (0-2) Urine WBC 11-50/hpf (0-5) Urine Epithelial Cells Moderate/hpf (NONE-MOD) Urine Crystals None seen (NONE SEEN) Urine Bacteria Few/hpf (NONE-FEW) Urine Hyaline Casts 5/20/lpf (NONE) Urine Granular Casts None seen (NONE SEEN) Urine Waxy Casts None seen (NONE SEEN) Urine Red Blood Cell Casts None seen (NONE SEEN) Urine White Blood Cell Casts None seen (NONE SEEN) Urine Mucus Present (None Seen) Urine Trichomonas None seen (NONE SEEN) Urine Yeast None (NONE SEEN) Urinalysis Comment Urine Culture Reflexed Indicated ECG Interpretation ECG Interpretation: Sinus rhythm with a rate of 96 Left axis deviation No STEMI Time: 19:50 Interpreted by: ED physician X-Ray Chest Interpretation Chest Xray Interpretation: IMPRESSION: No acute pulmonary process. Dictated by: Bella Cruz M.D. on 03/08/2017 at 20:15 View: Portable, 1 view Interpretation / Wet Read by: Interpret - Radiologist CT Head Interpretation IMPRESSION: 1. No acute intracranial process. Stable interval examination compared to CT and MR Brain dated 03/03/17. 2. Moderate atrophy and chronic microvascular ischemic changes. Dictated by: Bella Cruz M.D. on 03/08/2017 at 20:21 Interpretation / Wet Read by: Interpret - Radiologist Re-Eval/Medical Decision Med Decision/Clinical Course 2 L of saline were infused. Orthostatics were tested. When she stood up she felt lightheaded and her heart rate went from 86-106. She does not feel stable for discharge home. Pulmonary emboli was ruled out. Her urine shows indicators of infection. I am going to place her on IV ceftriaxone and admit her overnight observation with syncope, dehydration, prerenal azotemia and urinary tract infection. Myocardial infarction and pulmonary emboli and aortic dissection of all been ruled out. Source of Hx: Old records Consultation : Call Returned at: 22:13 Net Web Developer: Agrees with eval, Agrees with plan Note: Consulted with [employer]. Pt thinks that she has been taking care of herself fine. Counseled Regarding: Diagnosis, Lab results Discharge & Departure Impression: Primary Impression: Syncope and collapse Additional Impressions: Dehydration Urinary tract infection Urinary tract infection type: acute cystitis Hematuria presence: without hematuria Qualified Code: N30.00 - Acute cystitis without hematuria Discharge Condition All VS Reviewed: Yes Condition: Stable Referrals: GHADA (PCP) Deborah Attestation Portions of this note were transcribed by Sonia Gonzalez. I, Dr. Garcia personally performed the history, physical exam and medical decision-making; I reviewed and confirmed the accuracy of the information in the transcribed note. Signed by : Deborah Serrano, 03/08/17. copies to: Eliu Champion DO Mar 08, 2017 19:30 Sonia Stern Mar 08, 2017 19:32
[2017-03-08 20:13] LABS: BASOPHILS % (AUTO) 0.8 % (0-3); EOSINOPHILS % (AUTO) 1.2 % (0-5); MONOCYTES % (AUTO) 10.4 % (4-12); Mean Corpuscular Hemoglobin 33.1 pg (27.0-35.0); NEUTROPHILS % (AUTO) 62.1 % (40-74); Platelet Count 394 bil/L (150-400)
--- NOTE | 2017-03-08 20:16 | DRSVH ---
PROCEDURE: X-RAY CHEST ONE VIEW, PORTABLE ([id number]) INDICATIONS: syncope TECHNIQUE: One view of the chest was acquired. COMPARISON: None. FINDINGS: Surgical changes and devices: None. Lungs and pleura: No pleural effusions or pneumothorax. Lungs are clear. Mediastinum: Mediastinal contours appear normal. Heart size is normal. Bones and chest wall: No suspicious bony lesions. Overlying soft tissues appear unremarkable. IMPRESSION: No acute pulmonary process. Dictated by: Bella Cruz M.D. on 03/08/2017 at 20:15 Approved by: Bella Cruz M.D. on 03/08/2017 at 20:15
--- NOTE | 2017-03-08 20:24 | DRSVH ---
PROCEDURE: CT BRAIN WITHOUT CONTRAST ([id number]) INDICATIONS: syncope, head injury TECHNIQUE: Noncontrast 4.5 mm thick angled axial sections acquired from the foramen magnum to the vertex, with c oronal reformats. COMPARISON: [facility], MR, MR BRAIN WO CON, 03/03/2017, 16:37. [facility], CT, CT ANGIO BRAIN AND NECK, 03/03/2017, 14:56. [facility], MR, MR ANGIO HEAD WO CON, 02/06, 10:56. FINDINGS: Image quality: Excellent. CSF spaces: Basal cisterns are patent. No extra-axial fluid collections. The ventricles are symmet tigist in size and shape. Brain: No intracranial bleeds or masses. There is cerebral volume loss for age, with resultant vent ricular and sulcal prominence. There are periventricular and deep white matter chronic small vessel ischemic changes. There is intracranial internal carotid artery atherosclerosis. Skull and face: Calvarium and visualized facial bones appear intact, without suspicious lesions. Sinuses: Visualized sinuses and mastoids are clear. IMPRESSION: 1. No acute intracranial process. Stable interval examination compared to CT and MR Brain dated . 2. Moderate atrophy and chronic microvascular ischemic changes. Dictated by: Bella Cruz M.D. on 03/08/2017 at 20:21 Approved by: Bella Cruz M.D. on 03/08/2017 at 20:22
[2017-03-08 20:35] LABS: D-Dimer 1.15 mg/L FEU (<0.50)
[2017-03-08 20:47] LABS: TROPONIN T < 0.010 ug/L (0.0-0.011)
[2017-03-08 20:49] LABS: Magnesium 1.8 mg/dL (1.6-2.6)
[2017-03-08] MEDS ORDERED: 0.9% Sodium Chloride 1,000 ML IV ONE ×2 (21:25→22:40)
[2017-03-08 22:48] VITALS: BP 128/56; PULSE 87; RESP 20; O2SAT 100
[2017-03-08 23:30] VITALS: BP 134/62; PULSE 80
[2017-03-08 23:31] VITALS: BP 121/65; PULSE 86
[2017-03-08 23:32] VITALS: BP 124/52; PULSE 106
[2017-03-09] VITALS (14 sets, daily range): BP systolic 94–155; BP diastolic 61–84; PULSE 68–94; RESP 16–22; O2SAT 93–97
[2017-03-09 00:05] LABS: APPEARANCE,URINE HAZY (CLEAR,HAZY); COLOR,URINE YELLOW (YELLOW); OCCULT BLOOD,URINE TRACE (NEGATIVE); UROBILINOGEN,URINE NORMAL (NORMAL)
[2017-03-09] MEDS ORDERED: cefTRIAXone Inj 2,000 MG in Dextrose 5% Minibag Plus 50 ML IV ONE (00:10)
[2017-03-09] MEDS ORDERED: Alum-Mag Hydrox-Simeth 30 mL Suspension PO PRN (01:05)
[2017-03-09] MEDS ORDERED: Ondansetron 2 mg/mL 2 mL Inj IVPUSH PRN (01:05)
[2017-03-09] MEDS ORDERED: Glucose 40% Oral Gel 15 Gm Tube PO PRN (01:35)
[2017-03-09] MEDS ORDERED: Albuterol 2.5 mg/3 mL Inhalation Solution NEB PRN (01:35)
--- NOTE | 2017-03-09 01:35 | PCM.HPMED ---
Subjective Date of Service Mar 09, 2017 Primary Provider: Admitting Physician: Reuben Zayas MD Primary Care Physician: Wilda Kan MD Attending Physician: Reuben Zayas MD Admit Status: From the Emergency Department, Remote Telemetry Chief Complaint: Ground-level fall 2 secondary to syncopal episodes History of Present Illness: Ms. Jacobs is a 76-year-old female with a past medical history including type II diabetes, hypertension, and chronic pain, that presented to the emergency department for ground-level fall 2 secondary to lightheaded dizziness with syncopal episode. She was recently hospitalized from 03/01/2017 to 03/04/2017 for similar. Due to patient's report of head trauma, stat CT of the head was obtained, which did not reveal any acute intracranial abnormalities. Due to the nature of recurrent admissions for the same, and distance of patient's home , patient was admitted under observation status for recurrent syncope, in addition to orthostatic hypotension, likely secondary to dehydration, and suspected urinary tract infection. - Hospital day one Patient states that the admission, she experienced 2 ground-level falls, secondary to feeling lightheaded and dizzy, with momentary loss of consciousness , with reported head trauma. She denies any recent onset of fever, chills, nausea, vomiting, dysuria, abdominal pain, chest pain, shortness of breath, or symptoms of cough. She states since her recent discharge 03/04/2017, she has attempted to increase her hydration status. She denies any gait normality is at baseline, and does not use a walker or cane. She is uncertain why she keeps experiencing near syncopal or syncopal episodes. She reports she lives in a recreational vehicle in [place], [place], and she reports she lives alone. Of note: Recent hospitalization for similar dated 03/01/2017 until 03/04/2017; patient completed numerous studies for evaluation, including multiple imaging studies such as MRA, neurology consultation, CT of the head and neck, echocardiogram, all of which had returned as negative, without any identifiable etiologies for her presenting symptoms; diagnoses at discharge included BPPV, orthostatic hypotension secondary to age, uncontrolled diabetes, side effect of pain medications, and dehydration. In the emergency department, T 36.7, pulse 107, respiratory 18, blood pressure 106/71, 99% on room air; ED staff reports that she was positive for orthostatics , and also experienced lightheadedness and increased heart rate when completing the evaluation. Initial labs revealed white count 10.4, with no shift, hemoglobin 16.7, hematocrit 47.4, sodium 136, potassium 4.3, BUNs 32, creatinine 1.05, glucose 162, LFTs were within range, troponin negative 2; d- dimer 1.15, UA revealed hazy appearance with trace leukocyte esterase, negative nitrites, 11-50 white blood cells, moderate epithelial contaminants noted, culture was reflexed. Imaging included CT of the hand, which did not reveal any acute intracranial processes, chest x-ray which also did not reveal any acute abnormalities, and CT angiogram, which did not reveal any evidence of pulmonary emboli. Initial therapies included 2 L normal saline, gabapentin 600 mg 1, and ceftriaxone 2 g IV 1. Patient was transported to medical floor in stable condition. Review of Systems: Complete review of systems obtained, pertinent positives and negatives as noted in history of present illness Allergies Coded Allergies: Penicillins (Verified Allergy, Mild, RASH, 03/01/17) Uncoded Allergies: SKELETAL MUSCLE RELAXANTS (Allergy, Unknown, 07/28/04) PASSES OUT "BREAKS OUT" Home Medications Obtained from recent discharge medication list, dictated 03/04/2017 Citalopram (Citalopram) 20 Mg Tablet 20 MG PO DAILY (Reported) Fosinopril Sodium (Fosinopril Sodium) 40 Mg Tablet 60 MG PO DAILY (Reported) Gabapentin (Neurontin) 300 Mg Capsule 600 MG PO TID Prescribed by: HAWK BARRAGAN DO Metformin (Metformin) 500 Mg Tablet 500 MG PO BID Prescribed by: HAWK BARRAGAN DO oxyCODONE-Acetaminophen 5-325 mg (oxyCODONE-Acetaminophen 5-325 mg) 1 Each Tablet 1 TAB PO Q8H Prescribed by: HAWK BARRAGAN DO PMH Obtained from previous hospitalization: Diabetes type II Hypertension Chronic back pain Tobacco use disorder Depression Diverticulitis Surgical History Documentation supports: Partial colectomy Family History Reported as: Mother secondary to asthma Father secondary to prostate cancer Social History Hx Alcohol Use: No Hx Substance Use: No Hx Tobacco Use: Yes Smoking Status: Former Smoker (patient reports quit approximately 2 weeks ago, with 30 year pack history with 2 packs per day for 15 years) Living Arrangement: Alone (in recreational vehicle, in [place], [place]) Exam Vital Signs Vital Sign - Last Date Time Temp Pulse Resp B/P Pulse Ox O2 Delivery O2 Flow Rate FiO2 03/08/17 23:32 106 124/52 03/08/17 22:48 20 100 Room Air 03/08/17 19:28 36.7 Intake and Output 03/08/17 03/08/17 03/09/17 Cumulative From/Thru 15:00 23:00 07:00 03/08/17 19:28 - 03/08/17 23:27 Intake Total 1000 ml 1000 ml 2000 ml Balance 1000 ml 1000 ml 2000 ml Intake IV Total 1000 ml 1000 ml 2000 ml Exam General: Alert and oriented 3; pleasant woman resting supine in bed in no acute distress HEENT: Grossly atraumatic, with some evidence of dry blood on the left parietal region without any open wounds or active bleeding; mildly dry mucous membranes Neck: Full range of motion without pain, with poor skin turgor Cardiac: Regular rate and rhythm at time of examination without any appreciable murmurs Respiratory: Equal and adequate airflow all carter without any wheeze or rhonchi ; no use of accessory muscles Chest: Atraumatic without any reproducible pain with palpation Abdomen: Soft, nontender, nondistended; no suprapubic pain appreciated Extremities: No edema appreciated Skin: Warm and dry MSK: 5/5 strength 4/4 extremities at major joints of the shoulder, hip Neuro: Cranial nerves II-XII grossly intact, speech without slur, facial expressions equal and symmetric Psych: Appropriate mood, affect, and responses to questions; good insight and judgment Lab and Diagnostics Result Diagram: 03/08/17193903/08/171939 Assessment & Plan Ms. Jacobs is a 76-year-old female with a past medical history including type II diabetes, hypertension, and chronic pain, that presented to the emergency department for ground-level fall 2 secondary to lightheaded dizziness with syncopal episode. She was recently hospitalized from 03/01/2017 to 03/04/2017 for similar. Due to patient's report of head trauma, stat CT of the head was obtained, which did not reveal any acute intracranial abnormalities. Due to the nature of recurrent admissions for the same, and distance of patient's home , patient was admitted under observation status for recurrent syncope, in addition to orthostatic hypotension, likely secondary to dehydration, and suspected urinary tract infection. - Hospital day one Ground-level fall secondary to recurrent syncopal episodes, acute, present on admission, ongoing - Patient reports 2 episodes ground-level fall secondary to syncope/near syncope day of admission - May be secondary to underlying infection, dehydration, medication adverse effects - No recent admission: March 01 to 03/04/2017 for similar - Thorough workup has been completed over recent weeks, including numerous imaging studies, and including neurological consultation at previous hospitalization with Dr. Salas - CTA negative for pulmonary emboli - EKG negative for dysrhythmias; QTc 439 - Repeat orthostatics - Continue telemetry - Improve hydration - Hold blood pressure medications, and citalopram - Consideration for other causes, such as autonomic, ongoing BPPV, deconditioning - PT eval Suspected UTI, acute, present on admission, under therapy - On admit: UA trace leukocyte esterase, negative nitrite, few bacteria, with moderate epithelial contaminant, and 11-50 white blood cells - Unlikely infectious, but given recent history of decreased hydration, infection may/may not be an early stages of development - Patient denied any history of dysuria, fever, chills at time of admission - In ED, patient received ceftriaxone 2 g IV 1 - We will continue ceftriaxone, consider transition to oral when ready for discharge Elevated d-dimer, chronicity unknown, present on admission, under evaluation - On admit: 1.15 - CTA on admission negative for pulmonary emboli - No evidence of DVT in upper or lower extremities - May be secondary to underlying infection, acute renal failure, recent trauma secondary to ground-level falls - No intervention at this time, determined and treat underlying etiology Erythrocythemia, likely acute, present on admission, under evaluation - On admit: Hemoglobin 16.7; Hb noted 12.5 at previous discharge date - Likely secondary to hemoconcentration due to dehydration - Monitor Diabetes mellitus, presumed type II, chronic, presumed stable - Previous admit revealed A1c 7.7 - Hold metformin at this time - Low-dose correctional scale Chronic pain, presumed stable - Resume home medications when verified, and if appropriate - Acetaminophen and heating packs only at this time - Consideration that narcotics are contributing to patient's dizziness, and subsequent ground-level falls Depression, chronic, presumed stable - Holding citalopram at this point secondary to sodium lowering effects PRN fever, bowel, nausea, pain DVT: Hep q8, no evidence of active bleeding at time of admission Diet: DM GI: Not indicated IVF: NS100 Code: FULL CODE Patient status: Patient is admitted under observation status with expected length of stay less than 2 midnights due to severity of presenting symptoms, risk of adverse event, and complexity of treatment plan. Pain Evaluation: Adequate Pain Control GI Prophylaxis: Not indicated VTE Prophylaxis: Sub-Q Heparin (Unfractionated) Resuscitation Status: CPR: Attempt Resuscitation Attending Statement The patient was seen and examined together with Dr. Flores on 03/09 and I agree with the history, exam and plan as outlined in the note above. copies to: Wilda Kan MD, Lindsay R DO Mar 09, 2017 01:35 Reuben Zayas MD Mar 09, 2017 04:49
[2017-03-09] MEDS ORDERED: Dextrose 10% 250 ML IV PRN (02:00)
[2017-03-09] MEDS: 0.9% Sodium Chloride 1,000 ML IV SCH ×3 (02:17→21:30)
--- NOTE | 2017-03-09 02:25 | NUR ---
Admission Note Pt admitted to [facility] on stretcher from ER at 0200, alert and orientedx3, states mild nausea, dizziness when stand up, denies any pain or SOB, fever, chills,urinary urgency,frequency. VSS, BP 147/84 HR 82 SPO2 96% on RA,afebrile, RR 16. Lung sounds clear, no wheezes or crackles, HR regular, no murmur, Tele applied SR 76 per quality assurance monitor. Abdomen soft, nontender,BT slightly hypoactive. No edema at all extremities. Abrasion and bumps with dry blood at posterior head due to fall yesterday, large area of dark red with whitish spots at entire lower back from bottom up, redness and skin tear at bilateral buttock, bruise at left buttock, abrasion at left elbow. Pt oriented to call light, patricia alarm on for safety, NS 100ml/hr administered, Zofran given for nausea, care ongoing. Home med Metformin sent to pharmacy. Pt requests information for advance directives, note left at the desk of social science teacher.
[2017-03-09] MEDS ORDERED: OXYC-466 PO (03:52)
[2017-03-09] MEDS ORDERED: PROC10TA PO (03:52)
[2017-03-09] MEDS ORDERED: GABA600T2 PO (03:52)
[2017-03-09] MEDS ORDERED: TRIA80OI TOP (03:52)
[2017-03-09] MEDS: Insulin LISPRO 300 Unit/3 mL Inj SUBQ SCH ×4 (07:25→21:30)
--- NOTE | 2017-03-09 07:29 | DRSVH ---
PROCEDURE: CT ANGIO CHEST PULMONARY EMBOLISM ([id number]) INDICATIONS: recurrent syncope, tachycardia, elevated ddimer TECHNIQUE: After the administration of intravenous contrast, 2 mm thick sections acquired from the pulmonary api anneliese to the posterior costophrenic angles. 3-dimensional maximum intensity projection (MIP) coronal a nd sagittal reformats were then acquired through the thorax. For radiation dose reduction, the follo wing was used: automated exposure control, adjustment of mA and/or kV according to patient size. COMPARISON: None. FINDINGS: Image quality: Excellent. Pulmonary arteries: Pulmonary arteries are normal in size, and demonstrate no intraluminal filling d efects to suggest central pulmonary embolism. Lungs and pleura: Emphysematous changes are present. There is increased pulmonary vascularity. No ple ural effusions or pneumothorax. Central and peripheral airways are patent. Mediastinum: Heart size is normal, without pericardial effusion. No mediastinal or hilar adenopathy . Thoracic aorta is normal in caliber and enhancement. Esophagus is normal in caliber, without hiat al hernia. Atherosclerotic vascular disease is noted. Bones and chest wall: No suspicious bony lesions. Ribs and thoracic spine appear intact throughout. Thyroid gland is unremarkable. No axillary or supraclavicular adenopathy. Abdomen: Visualized upper abdominal solid organs appear normal in the early arterial phase of enhanc ement. IMPRESSION: 1. No visualized pulmonary embolism. 2. Increased pulmonary vascularity suggestive of edema. Dictated by: Bella Cruz M.D. on 03/09/2017 at 7:25 Approved by: Bella Cruz M.D. on 03/09/2017 at 7:27
[2017-03-09 07:49] LABS: BASOPHILS % (AUTO) 0.7 % (0-3); MONOCYTES % (AUTO) 14.1 % (4-12); Mean Corpuscular Hemoglobin 33.4 pg (27.0-35.0); NEUTROPHILS % (AUTO) 47.4 % (40-74); Platelet Count 285 bil/L (150-400)
[2017-03-09] MEDS: Heparin 5,000 Unit/mL Inj SUBQ SCH ×3 (07:56→23:49)
[2017-03-09] MEDS: oxyCODONE-Acetamin 5-325 mg Tablet PO PRN ×3 (08:41→23:50)
--- NOTE | 2017-03-09 10:57 | NUR ---
Evaluation completed. Please go to "Notes" then click on "Assessments and Notes" (bottom left corner of screen). Then select appropriate discipline tab on top of screen.
--- NOTE | 2017-03-09 12:16 | NUR ---
JO explained and signed. Copy of JO and Medicare self administered medication information given to pt.
--- NOTE | 2017-03-09 17:13 | NUR ---
Uneventful Day Patient alert and oriented X3. Patient cooperative with care and able to make needs known. Patient requires SBA to BSC due to unsteady balance. Patient continue to have Normal Saline running in IV at a rate of 100mL/hr. Patient has complained of pain to legs and lower back today with pain elevating at times to 10/10. Patient was administered Percocet 5-325 for pain, which was effective at decreasing pain down to 2-3/10. Bed locked and patricia alarm placed on due to recent falls at home.
[2017-03-09] MEDS: cefTRIAXone Inj 2,000 MG in Dextrose 5% Minibag Plus 50 ML IV SCH (20:46)
[2017-03-09] MEDS: Polyethylene Glycol (PEG) 17 Gm Powder PO PRN (20:54)
[2017-03-10] VITALS (12 sets, daily range): BP systolic 134–181; BP diastolic 70–92; PULSE 66–102; RESP 16–20; O2SAT 94–97
--- NOTE | 2017-03-10 04:44 | NUR ---
pain/tele Pt c/o of back pain 02/14. Percocet given improving discomfort per pt. Tele SR HR 68 per bus driver/monitor. VSS. care continues.
[2017-03-10] MEDS: Heparin 5,000 Unit/mL Inj SUBQ SCH ×2 (07:36→17:39)
[2017-03-10] MEDS: oxyCODONE-Acetamin 5-325 mg Tablet PO PRN ×3 (07:37→20:41)
[2017-03-10] MEDS: Insulin LISPRO 300 Unit/3 mL Inj SUBQ SCH ×4 (07:37→21:55)
[2017-03-10] MEDS: 0.9% Sodium Chloride 1,000 ML IV SCH (07:38)
[2017-03-10] MEDS ORDERED: Potassium Chloride 20 mEq SR Tablet PO ONE (10:45)
--- NOTE | 2017-03-10 10:48 | PCM.PNMED ---
Subjective Date of Service Mar 10, 2017 Subjective Patient in bed this morning and seems much more alert and communicative relative to yesterday. Exam Vital Signs Vital Sign - Last Date Time Temp Pulse Resp B/P Pulse Ox O2 Delivery O2 Flow Rate FiO2 03/10/17 10:10 37.1 74 16 134/73 94 Room Air Intake and Output 03/09/17 03/09/17 03/10/17 Cumulative From/Thru 14:59 22:59 06:59 03/08/17 19:28 - 03/10/17 06:36 Intake Total 1935 ml 1583 ml 5905 ml Output Total 1000 ml 2550 ml 3550 ml Balance 935 ml -967 ml 2355 ml Intake Oral 890 ml 240 ml 1130 ml IV Total 1045 ml 1343 ml 4775 ml Output Urine Total 1000 ml 2550 ml 3550 ml # Bowel Movements 0 0 0 Exam Constitutional: Elderly female in no acute distress Head: Normocephalic H [place] Chest: Clear to auscultation Cor: Regular rate and rhythm S1-S2 Abdomen: Soft nontender bowel sounds present Extremities: No pedal edema Neuro: Alert and oriented 3, motor strength is intact bilaterally Lab and Diagnostics Laboratory Tests 72 Hours Test 03/08/17 19:40 03/08/17 23:31 03/08/17 23:50 03/09/17 07:35 White Blood Count 10.4th/mm3 (3.8-10.1) 7.7th/mm3 (3.8-10.1) Red Blood Count 5.04mil/mm3 (3.90-5.20) 3.80mil/mm3 (3.90-5.20) Hemoglobin 16.7g/dL (12.0-15.6) 12.7g/dL (12.0-15.6) Hematocrit 47.4% (35.0-46.0) 36.1% (35.0-46.0) Mean Corpuscular Volume 94.0fL (81-100) 95.0fL (81-100) Mean Corpuscular Hemoglobin 33.1pg (27.0-35.0) 33.4pg (27.0-35.0) Mean Corpuscular Hemoglobin Concent 35.2% (32.0-37.0) 35.2% (32.0-37.0) Red Cell Distribution Width 12.0% (12.3-15.4) 12.0% (12.3-15.4) Platelet Count 394bil/L (150-400) 285bil/L (150-400) Neutrophils (%) (Auto) 62.1% (40-74) 47.4% (40-74) Lymphocytes (%) (Auto) 24.1% (14-46) 34.6% (14-46) Monocytes (%) (Auto) 10.4% (4-12) 14.1% (4-12) Eosinophils (%) (Auto) 1.2% (0-5) 2.0% (0-5) Basophils (%) (Auto) 0.8% (0-3) 0.7% (0-3) Prothrombin Time 10.7sec (8.1-12.5) Prothromb Time International Ratio 1.00ratio D-Dimer 1.15mg/L FEU (<0.50) Sodium Level 136mEq/L (134-144) 138mEq/L (134-144) Potassium Level 4.3mEq/L (3.5-5.2) 3.4mEq/L (3.5-5.2) Chloride Level 94mEq/L (97-108) 104mEq/L (97-108) Carbon Dioxide Level 20mmol/L (18-29) 19mmol/L (18-29) Blood Urea Nitrogen 32mg/dL (8-27) 23mg/dL (8-27) Creatinine 1.05mg/dL (0.57-1.00) 0.78mg/dL (0.57-1.00) Estimat Glomerular Filtration Rate 73mL/min (>59) 103mL/min (>59) Glucose Level 162mg/dL (60-99) 130mg/dL (60-99) Calcium Level 10.0mg/dL (8.5-10.1) 8.4mg/dL (8.5-10.1) Magnesium Level 1.8mg/dL (1.6-2.6) Total Bilirubin 0.3mg/dL (0.0-1.2) 0.2mg/dL (0.0-1.2) Aspartate Amino Transf (AST/SGOT) 22U/L (0-50) 12U/L (0-50) Alanine Aminotransferase (ALT/SGPT) 26U/L (0-32) 14U/L (0-32) Alkaline Phosphatase 109U/L (25-165) 79U/L (25-165) Troponin T < 0.010ug/L (0.0-0.011) 0.010ug/L (0.0-0.011) Pro-B-Type Natriuretic Peptide 228.8pg/mL (0-738) Total Protein 7.4g/dL (6.4-8.4) 5.4g/dL (6.4-8.4) Albumin 4.3g/dL (3.4-5.0) 3.3g/dL (3.4-5.0) Urine Color Yellow (YELLOW) Urine Appearance Hazy (CLEAR,HAZY) Urine pH 5.0 (5.0-8.0) Urine Specific [place] 1.010 (1.003-1.035) Urine Protein Tracemg/dL (NEG,TRACE) Urine Glucose (UA) Negativemg/dL (NEGATIVE) Urine Ketones Tracemg/dL (NEGATIVE) Urine Occult Blood Trace (NEGATIVE) Urine Nitrite Negative (NEGATIVE) Urine Bilirubin Negative (NEGATIVE) Urine Urobilinogen Normalmg/dL (NORMAL) Urine Leukocyte Esterase Trace (NEGATIVE) Urine RBC 0-2/hpf (0-2) Urine WBC 11-50/hpf (0-5) Urine Epithelial Cells Moderate/hpf (NONE-MOD) Urine Crystals None seen (NONE SEEN) Urine Bacteria Few/hpf (NONE-FEW) Urine Hyaline Casts 5/20/lpf (NONE) Urine Granular Casts None seen (NONE SEEN) Urine Waxy Casts None seen (NONE SEEN) Urine Red Blood Cell Casts None seen (NONE SEEN) Urine White Blood Cell Casts None seen (NONE SEEN) Urine Mucus Present (None Seen) Urine Trichomonas None seen (NONE SEEN) Urine Yeast None (NONE SEEN) Urinalysis Comment Urine Culture Reflexed Indicated Result Diagram: 03/09/17 0864 03/09/17 9800 X-Rays, CTs and MRIs PROCEDURE: CT ANGIO CHEST PULMONARY EMBOLISM ([id number]) INDICATIONS: recurrent syncope, tachycardia, elevated ddimer TECHNIQUE: After the administration of intravenous contrast, 2 mm thick sections acquired from the pulmonary apices to the posterior costophrenic angles. 3-dimensional maximum intensity projection (MIP) coronal and sagittal reformats were then acquired through the thorax. For radiation dose reduction, the following was used: automated exposure control, adjustment of mA and/or kV according to patient size. COMPARISON: None. FINDINGS: Image quality: Excellent. Pulmonary arteries: Pulmonary arteries are normal in size, and demonstrate no intraluminal filling defects to suggest central pulmonary embolism. Lungs and pleura: Emphysematous changes are present. There is increased pulmonary vascularity. No pleural effusions or pneumothorax. Central and peripheral airways are patent. Mediastinum: Heart size is normal, without pericardial effusion. No mediastinal or hilar adenopathy. Thoracic aorta is normal in caliber and enhancement. Esophagus is normal in caliber, without hiatal hernia. Atherosclerotic vascular disease is noted. Bones and chest wall: No suspicious bony lesions. Ribs and thoracic spine appear intact throughout. Thyroid gland is unremarkable. No axillary or supraclavicular adenopathy. Abdomen: Visualized upper abdominal solid organs appear normal in the early arterial phase of enhancement. IMPRESSION: 1. No visualized pulmonary embolism. 2. Increased pulmonary vascularity suggestive of edema. Dictated by: Bella Cruz M.D. on 03/09/2017 at 7:25 Approved by: Bella Cruz M.D. on 03/09/2017 at 7:27 PROCEDURE: CT BRAIN WITHOUT CONTRAST ([id number]) INDICATIONS: syncope, head injury TECHNIQUE: Noncontrast 4.5 mm thick angled axial sections acquired from the foramen magnum to the vertex, with coronal reformats. COMPARISON: [facility], MR, MR BRAIN WO CON, 03/03/2017, 16:37. [facility], CT, CT ANGIO BRAIN AND NECK, 03/03/2017, 14:56. [facility], MR, MR ANGIO HEAD WO CON, 03/02/2017, 10:56. FINDINGS: Image quality: Excellent. CSF spaces: Basal cisterns are patent. No extra-axial fluid collections. The ventricles are symmetric in size and shape. Brain: No intracranial bleeds or masses. There is cerebral volume loss for age , with resultant ventricular and sulcal prominence. There are periventricular and deep white matter chronic small vessel ischemic changes. There is intracranial internal carotid artery atherosclerosis. Skull and face: Calvarium and visualized facial bones appear intact, without suspicious lesions. Sinuses: Visualized sinuses and mastoids are clear. IMPRESSION: 1. No acute intracranial process. Stable interval examination compared to CT and MR Brain dated 03/03/17. 2. Moderate atrophy and chronic microvascular ischemic changes. Dictated by: Bella Cruz M.D. on 03/08/2017 at 20:21 Approved by: Bella Cruz M.D. on 03/08/2017 at 20:22 Assessment & Plan Ms. Jacobs is a 76-year-old female with a past medical history including type II diabetes, hypertension, and chronic pain, that presented to the emergency department for ground-level fall 2 secondary to lightheaded dizziness with syncopal episode. She was recently hospitalized from 03/01/2017 to 03/04/2017 for similar. Due to patient's report of head trauma, stat CT of the head was obtained, which did not reveal any acute intracranial abnormalities. Due to the nature of recurrent admissions for the same, and distance of patient's home , patient was admitted under observation status for recurrent syncope, in addition to orthostatic hypotension, likely secondary to dehydration, and suspected urinary tract infection. - Hospital day one Ground-level fall secondary to recurrent syncopal episodes, acute, present on admission, ongoing - Patient reports 2 episodes ground-level fall secondary to syncope/near syncope day of admission - May be secondary to underlying infection, dehydration, medication adverse effects - No recent admission: March 01 to 03/04/2017 for similar - Thorough workup has been completed over recent weeks, including numerous imaging studies, and including neurological consultation at previous hospitalization with Dr. Salas - CTA negative for pulmonary emboli - EKG negative for dysrhythmias; QTc 439 - Repeat orthostatics - Continue telemetry - Improve hydration - Hold blood pressure medications, and citalopram - Consideration for other causes, such as autonomic, ongoing BPPV, deconditioning - PT eval which recommended further physical therapy at longterm facility Suspected UTI, acute, present on admission, under therapy - On admit: UA trace leukocyte esterase, negative nitrite, few bacteria, with moderate epithelial contaminant, and 11-50 white blood cells - Unlikely infectious, but given recent history of decreased hydration, infection may/may not be an early stages of development - Patient denied any history of dysuria, fever, chills at time of admission - In ED, patient received ceftriaxone 2 g IV 1 - We will continue ceftriaxone, consider transition to oral when ready for discharge Elevated d-dimer, chronicity unknown, present on admission, under evaluation - On admit: 1.15 - CTA on admission negative for pulmonary emboli - No evidence of DVT in upper or lower extremities - May be secondary to underlying infection, acute renal failure, recent trauma secondary to ground-level falls - No intervention at this time, determined and treat underlying etiology Erythrocythemia, likely acute, present on admission, under evaluation - On admit: Hemoglobin 16.7; Hb noted 12.5 at previous discharge date - Likely secondary to hemoconcentration due to dehydration - Monitor Diabetes mellitus, presumed type II, chronic, presumed stable - Previous admit revealed A1c 7.7 - Hold metformin at this time - Low-dose correctional scale Chronic pain, presumed stable - Resume home medications when verified, and if appropriate - Acetaminophen and heating packs only at this time - Consideration that narcotics are contributing to patient's dizziness, and subsequent ground-level falls Depression, chronic, presumed stable - Holding citalopram at this point secondary to sodium lowering effects PRN fever, bowel, nausea, pain DVT: Hep q8, no evidence of active bleeding at time of admission Diet: DM GI: Not indicated IVF: NS100 Code: FULL CODE Patient status: Patient is admitted under observation status with expected length of stay less than 2 midnights due to severity of presenting symptoms, risk of adverse event, and complexity of treatment plan. GI Prophylaxis: Not indicated VTE Prophylaxis: Sub-Q Heparin (Unfractionated) VTE Mechanical Devices: Intermittant Pneumatic CD Resuscitation Status: CPR: Attempt Resuscitation Time spent 30 minutes Zaida Aguirre MD Mar 10, 2017 10:48
--- NOTE | 2017-03-10 14:31 | NUR ---
Daily update Patient alert and oriented X3 with periods of forgetfulness. [place] [facility] [place] due to recent [place]. Patient NS was discontinued today and patient was SL. Patient back continues to be discolored and itching; ointment applied. Patient bilateral hands are peeling and ointment applied to them as well. Patient potassium level was slightly low at 3.4 and MD made aware. PO potassium was ordered and administered. Patient continues to have complaints of leg/back pain of9-10/10 pain and has been administered PO percocet, which is effective at reducing pain to 3/10 pain. Patient was offered a shower, but patient refused. Patient did except a shampoo cap and had her hair washed and brushed. Bed locked and call light within reach.
--- NOTE | 2017-03-10 16:19 | NUR ---
Social Work: Initial Assessment Data: See initial assessment. Patient is a 76 year old female who was admitted on 03/09/17 for UTI & dehydration per H&P. Patient's insurance is Medicare and [facility] Health Plans. Patient's PCP is Dr. Wilda Kan. SW met with patient to discuss discharge planning. SW role explained. EMR reviewed. Patient states that she lives alone in a motor home in [place]. Patient considers her main support person to be her son-in-law. Patient denies having a DPOA or AD. Patient has declined AD information at this time. Patient states that she doesn't drive and relies on her son-in-law for transportation. Patient denies having a hx of home health services or SNF. Patient denies having fdc care insurance or VA benefits. Upon discharge, patient states that her son-in-law will transport her home. SW provided patient with a discharge planning checklist and encouraged to call with any questions/concerns. Phone number provided. Patient was discussed in morning rounds. PT has completed evaluation and recommendation has been made for SNF. SW will need a SNF order to be placed by MD prior to SW speaking with patient. SW will continue to follow. Assessment:Home with HH RN vs. SNF Plan: Patient will discharge home vs SNF. PT has evaluated patient and recommending SNF. SNF order will need to be placed by MD prior to SW discussing SNF options with patient. SW will continue to follow. TARA Archer Addendum: 03/10/17 at 1633 by MO MERAZ Amended: Links added.
[2017-03-10] MEDS: Polyethylene Glycol (PEG) 17 Gm Powder PO PRN (20:41)
[2017-03-10] MEDS: cefTRIAXone Inj 2,000 MG in Dextrose 5% Minibag Plus 50 ML IV SCH (20:41)
[2017-03-11] VITALS (8 sets, daily range): BP systolic 107–178; BP diastolic 72–97; PULSE 70–81; RESP 14–20; O2SAT 95–97
[2017-03-11] MEDS: Heparin 5,000 Unit/mL Inj SUBQ SCH ×3 (00:57→18:12)
[2017-03-11] MEDS: oxyCODONE-Acetamin 5-325 mg Tablet PO PRN ×3 (05:30→21:00)
--- NOTE | 2017-03-11 05:55 | NUR ---
NOC activity Pt complains of leg and back pain. Controlled with percocet prn. Denies chest pain, sob, n/v or abd discomfort. HS meds administered as scheduled. Intentional hourly rounding done. Addendum: 03/11/17 at 0559 by DON JOHN RN Reports of constipation. Last BM reported 03/06. Administered Miralax. Prune juice provided. No BM noted on shift.
[2017-03-11] MEDS: Insulin LISPRO 300 Unit/3 mL Inj SUBQ SCH ×4 (09:12→21:57)
--- NOTE | 2017-03-11 10:10 | NUR ---
Social Work-continued d/c planning: Data:EMR reviewed. Pt is on day 2 of hospitalization for UTI and dehydration per H&P. MD order received for SNF vs Home health. Pt has seen pt and recommended SNF. SW followed up with pt at bedside, SW role explained. SW explained since pt is under OBs status she would have to pay out of pocket for SNF. Pt states she cannot afford this and is on a limited income, SW also discussed assisted living, pt states she cannot afford this. Pt agreeable to HH referral, HH choice list provided. Pt has no agency preference, SW referred to rotating calendar and made referral to [facility] for RN,PT, and BULK SYSTEM OPERATOR, access given. SW attempted to reach son in law Wenceslao, no answer. Pt confirms she lives on the same property as Wenceslao in an . Pt confirms Don will provide transport home. MD to complete F2F. SW will continue to follow. Assessment:Pt who will likely return home with HH. Plan:Pt to discharge home when medically stable via POV. Referral made to [facility] for RN,PT, and BULK SYSTEM OPERATOR. Pt cannot afford private pay SNF. MD to complete F2F. SW will continue to follow. TARA Davis Addendum: 03/11/17 at 1126 by KANDI LEWIS NATASHA updated by PT that pt walked 250 ft today and they have cleared pt for home with HH services. TARA Davis
[2017-03-11] MEDS: 0.9% Sodium Chloride 1,000 ML IV SCH ×2 (10:40→21:00)
--- NOTE | 2017-03-11 11:40 | NUR ---
Case Management: IMM given and explained to pt. Chaya DURANDRN
[2017-03-11 11:50] LABS: BASOPHILS % (AUTO) 0.7 % (0-3); EOSINOPHILS % (AUTO) 1.6 % (0-5); Mean Corpuscular Hemoglobin 33.5 pg (27.0-35.0); Mean Corpuscular Volume 94.3 fL (81-100); NEUTROPHILS % (AUTO) 46.9 % (40-74); Platelet Count 276 bil/L (150-400)
[2017-03-11 12:34] LABS: Magnesium 1.5 mg/dL (1.6-2.6)
--- NOTE | 2017-03-11 14:58 | PCM.PNMED ---
Subjective Date of Service Mar 11, 2017 Subjective Patient feeling better since admission but still on exam does have significant orthostatic changes. Exam Vital Signs Vital Sign - Last Date Time Temp Pulse Resp B/P Pulse Ox O2 Delivery O2 Flow Rate FiO2 03/11/17 13:37 36.8 79 18 166/79 95 Room Air Intake and Output 03/10/17 03/10/17 03/11/17 Cumulative From/Thru 15:00 23:00 07:00 03/08/17 19:28 - 03/11/17 06:02 Intake Total 300 ml 1700 ml 70 ml 7975 ml Output Total 2300 ml 5850 ml Balance 300 ml -600 ml 70 ml 2125 ml Intake Oral 1700 ml 2830 ml IV Total 300 ml 70 ml 5145 ml Output Urine Total 2300 ml 5850 ml # Bowel Movements 0 0 Exam Head: Normocephalic atraumatic Chest: Clear to auscultation Cor: Regular rate and rhythm S1-S2 Abdomen: Soft nontender bowel sounds present Extremities: No pedal edema Neuro: Alert and oriented 3, motor strength is intact bilaterally Lab and Diagnostics Laboratory Tests 72 Hours Test 03/08/17 19:40 03/08/17 23:31 03/08/17 23:50 03/09/17 07:35 White Blood Count 10.4th/mm3 (3.8-10.1) 7.7th/mm3 (3.8-10.1) Red Blood Count 5.04mil/mm3 (3.90-5.20) 3.80mil/mm3 (3.90-5.20) Hemoglobin 16.7g/dL (12.0-15.6) 12.7g/dL (12.0-15.6) Hematocrit 47.4% (35.0-46.0) 36.1% (35.0-46.0) Mean Corpuscular Volume 94.0fL (81-100) 95.0fL (81-100) Mean Corpuscular Hemoglobin 33.1pg (27.0-35.0) 33.4pg (27.0-35.0) Mean Corpuscular Hemoglobin Concent 35.2% (32.0-37.0) 35.2% (32.0-37.0) Red Cell Distribution Width 12.0% (12.3-15.4) 12.0% (12.3-15.4) Platelet Count 394bil/L (150-400) 285bil/L (150-400) Neutrophils (%) (Auto) 62.1% (40-74) 47.4% (40-74) Lymphocytes (%) (Auto) 24.1% (14-46) 34.6% (14-46) Monocytes (%) (Auto) 10.4% (4-12) 14.1% (4-12) Eosinophils (%) (Auto) 1.2% (0-5) 2.0% (0-5) Basophils (%) (Auto) 0.8% (0-3) 0.7% (0-3) Prothrombin Time 10.7sec (8.1-12.5) Prothromb Time International Ratio 1.00ratio D-Dimer 1.15mg/L FEU (<0.50) Sodium Level 136mEq/L (134-144) 138mEq/L (134-144) Potassium Level 4.3mEq/L (3.5-5.2) 3.4mEq/L (3.5-5.2) Chloride Level 94mEq/L (97-108) 104mEq/L (97-108) Carbon Dioxide Level 20mmol/L (18-29) 19mmol/L (18-29) Blood Urea Nitrogen 32mg/dL (8-27) 23mg/dL (8-27) Creatinine 1.05mg/dL (0.57-1.00) 0.78mg/dL (0.57-1.00) Estimat Glomerular Filtration Rate 73mL/min (>59) 103mL/min (>59) Glucose Level 162mg/dL (60-99) 130mg/dL (60-99) Calcium Level 10.0mg/dL (8.5-10.1) 8.4mg/dL (8.5-10.1) Magnesium Level 1.8mg/dL (1.6-2.6) Total Bilirubin 0.3mg/dL (0.0-1.2) 0.2mg/dL (0.0-1.2) Aspartate Amino Transf (AST/SGOT) 22U/L (0-50) 12U/L (0-50) Alanine Aminotransferase (ALT/SGPT) 26U/L (0-32) 14U/L (0-32) Alkaline Phosphatase 109U/L (25-165) 79U/L (25-165) Troponin T < 0.010ug/L (0.0-0.011) 0.010ug/L (0.0-0.011) Pro-B-Type Natriuretic Peptide 228.8pg/mL (0-738) Total Protein 7.4g/dL (6.4-8.4) 5.4g/dL (6.4-8.4) Albumin 4.3g/dL (3.4-5.0) 3.3g/dL (3.4-5.0) Urine Color Yellow (YELLOW) Urine Appearance Hazy (CLEAR,HAZY) Urine pH 5.0 (5.0-8.0) Urine Specific [place] 1.010 (1.003-1.035) Urine Protein Tracemg/dL (NEG,TRACE) Urine Glucose (UA) Negativemg/dL (NEGATIVE) Urine Ketones Tracemg/dL (NEGATIVE) Urine Occult Blood Trace (NEGATIVE) Urine Nitrite Negative (NEGATIVE) Urine Bilirubin Negative (NEGATIVE) Urine Urobilinogen Normalmg/dL (NORMAL) Urine Leukocyte Esterase Trace (NEGATIVE) Urine RBC 0-2/hpf (0-2) Urine WBC 11-50/hpf (0-5) Urine Epithelial Cells Moderate/hpf (NONE-MOD) Urine Crystals None seen (NONE SEEN) Urine Bacteria Few/hpf (NONE-FEW) Urine Hyaline Casts 5/20/lpf (NONE) Urine Granular Casts None seen (NONE SEEN) Urine Waxy Casts None seen (NONE SEEN) Urine Red Blood Cell Casts None seen (NONE SEEN) Urine White Blood Cell Casts None seen (NONE SEEN) Urine Mucus Present (None Seen) Urine Trichomonas None seen (NONE SEEN) Urine Yeast None (NONE SEEN) Urinalysis Comment Urine Culture Reflexed Indicated Test 03/11/17 10:38 White Blood Count 5.7th/mm3 (3.8-10.1) Red Blood Count 3.88mil/mm3 (3.90-5.20) Hemoglobin 13.0g/dL (12.0-15.6) Hematocrit 36.6% (35.0-46.0) Mean Corpuscular Volume 94.3fL (81-100) Mean Corpuscular Hemoglobin 33.5pg (27.0-35.0) Mean Corpuscular Hemoglobin Concent 35.5% (32.0-37.0) Red Cell Distribution Width 11.7% (12.3-15.4) Platelet Count 276bil/L (150-400) Neutrophils (%) (Auto) 46.9% (40-74) Lymphocytes (%) (Auto) 37.8% (14-46) Monocytes (%) (Auto) 12.0% (4-12) Eosinophils (%) (Auto) 1.6% (0-5) Basophils (%) (Auto) 0.7% (0-3) Sodium Level 138mEq/L (134-144) Potassium Level 3.8mEq/L (3.5-5.2) Chloride Level 99mEq/L (97-108) Carbon Dioxide Level 24mmol/L (18-29) Blood Urea Nitrogen 9mg/dL (8-27) Creatinine 0.62mg/dL (0.57-1.00) Estimat Glomerular Filtration Rate 134mL/min (>59) Glucose Level 142mg/dL (60-99) Calcium Level 8.9mg/dL (8.5-10.1) Magnesium Level 1.5mg/dL (1.6-2.6) Thyroid Stimulating Hormone (TSH) 3.080uIU/mL (0.450-4.500) Free Thyroxine 1.23ng/dL (0.82-1.77) Result Diagram: 03/11/17 1038 03/11/17 1038 X-Rays, CTs and MRIs PROCEDURE: CT ANGIO CHEST PULMONARY EMBOLISM ([id number]) INDICATIONS: recurrent syncope, tachycardia, elevated ddimer TECHNIQUE: After the administration of intravenous contrast, 2 mm thick sections acquired from the pulmonary apices to the posterior costophrenic angles. 3-dimensional maximum intensity projection (MIP) coronal and sagittal reformats were then acquired through the thorax. For radiation dose reduction, the following was used: automated exposure control, adjustment of mA and/or kV according to patient size. COMPARISON: None. FINDINGS: Image quality: Excellent. Pulmonary arteries: Pulmonary arteries are normal in size, and demonstrate no intraluminal filling defects to suggest central pulmonary embolism. Lungs and pleura: Emphysematous changes are present. There is increased pulmonary vascularity. No pleural effusions or pneumothorax. Central and peripheral airways are patent. Mediastinum: Heart size is normal, without pericardial effusion. No mediastinal or hilar adenopathy. Thoracic aorta is normal in caliber and enhancement. Esophagus is normal in caliber, without hiatal hernia. Atherosclerotic vascular disease is noted. Bones and chest wall: No suspicious bony lesions. Ribs and thoracic spine appear intact throughout. Thyroid gland is unremarkable. No axillary or supraclavicular adenopathy. Abdomen: Visualized upper abdominal solid organs appear normal in the early arterial phase of enhancement. IMPRESSION: 1. No visualized pulmonary embolism. 2. Increased pulmonary vascularity suggestive of edema. Dictated by: Bella Cruz M.D. on 03/09/2017 at 7:25 Approved by: Bella Cruz M.D. on 03/09/2017 at 7:27 PROCEDURE: CT BRAIN WITHOUT CONTRAST ([id number]) INDICATIONS: syncope, head injury TECHNIQUE: Noncontrast 4.5 mm thick angled axial sections acquired from the foramen magnum to the vertex, with coronal reformats. COMPARISON: [facility], MR, MR BRAIN WO CON, 03/03/2017, 16:37. [facility], CT, CT ANGIO BRAIN AND NECK, 03/03/2017, 14:56. [facility], MR, MR ANGIO HEAD WO CON, 03/02/2017, 10:56. FINDINGS: Image quality: Excellent. CSF spaces: Basal cisterns are patent. No extra-axial fluid collections. The ventricles are symmetric in size and shape. Brain: No intracranial bleeds or masses. There is cerebral volume loss for age , with resultant ventricular and sulcal prominence. There are periventricular and deep white matter chronic small vessel ischemic changes. There is intracranial internal carotid artery atherosclerosis. Skull and face: Calvarium and visualized facial bones appear intact, without suspicious lesions. Sinuses: Visualized sinuses and mastoids are clear. IMPRESSION: 1. No acute intracranial process. Stable interval examination compared to CT and MR Brain dated 03/03/17. 2. Moderate atrophy and chronic microvascular ischemic changes. Dictated by: Bella Cruz M.D. on 03/08/2017 at 20:21 Approved by: Bella Cruz M.D. on 03/08/2017 at 20:22 Assessment & Plan Ms. Jacobs is a 76-year-old female with a past medical history including type II diabetes, hypertension, and chronic pain, that presented to the emergency department for ground-level fall 2 secondary to lightheaded dizziness with syncopal episode. She was recently hospitalized from 03/01/2017 to 03/04/2017 for similar. Due to patient's report of head trauma, stat CT of the head was obtained, which did not reveal any acute intracranial abnormalities. Due to the nature of recurrent admissions for the same, and distance of patient's home , patient was admitted under observation status for recurrent syncope, in addition to orthostatic hypotension, likely secondary to dehydration, and suspected urinary tract infection. - Hospital day one Ground-level fall secondary to recurrent syncopal episodes, acute, present on admission, ongoing - Patient reports 2 episodes ground-level fall secondary to syncope/near syncope day of admission - May be secondary to underlying infection, dehydration, medication adverse effects - No recent admission: March 01 to 03/04/2017 for similar - Thorough workup has been completed over recent weeks, including numerous imaging studies, and including neurological consultation at previous hospitalization with Dr. Salas - CTA negative for pulmonary emboli - EKG negative for dysrhythmias; QTc 439 - Repeat orthostatics - Continue telemetry - Improve hydration - Hold blood pressure medications, and citalopram - Consideration for other causes, such as autonomic, ongoing BPPV, deconditioning - PT eval which recommended further physical therapy at senior care facility -Patient remains with orthostatic changes so we will go ahead and continue with IV fluid hydration and recheck orthostatics later this afternoon -Discussed with patient that may need Florinef to maintain better blood pressure with standing. Suspected UTI, acute, present on admission, under therapy - On admit: UA trace leukocyte esterase, negative nitrite, few bacteria, with moderate epithelial contaminant, and 11-50 white blood cells - Unlikely infectious, but given recent history of decreased hydration, infection may/may not be an early stages of development - Patient denied any history of dysuria, fever, chills at time of admission - In ED, patient received ceftriaxone 2 g IV 1 - We will continue ceftriaxone, consider transition to oral when ready for discharge Elevated d-dimer, chronicity unknown, present on admission, under evaluation - On admit: 1.15 - CTA on admission negative for pulmonary emboli - No evidence of DVT in upper or lower extremities - May be secondary to underlying infection, acute renal failure, recent trauma secondary to ground-level falls - No intervention at this time, determined and treat underlying etiology Erythrocythemia, likely acute, present on admission, under evaluation - On admit: Hemoglobin 16.7; Hb noted 12.5 at previous discharge date - Likely secondary to hemoconcentration due to dehydration - Monitor Diabetes mellitus, presumed type II, chronic, presumed stable - Previous admit revealed A1c 7.7 - Hold metformin at this time - Low-dose correctional scale Chronic pain, presumed stable - Resume home medications when verified, and if appropriate - Acetaminophen and heating packs only at this time - Consideration that narcotics are contributing to patient's dizziness, and subsequent ground-level falls Depression, chronic, presumed stable - Holding citalopram at this point secondary to sodium lowering effects PRN fever, bowel, nausea, pain DVT: Hep q8, no evidence of active bleeding at time of admission Diet: DM GI: Not indicated IVF: NS100 Code: FULL CODE Patient status: Patient is admitted under observation status with expected length of stay less than 2 midnights due to severity of presenting symptoms, risk of adverse event, and complexity of treatment plan. GI Prophylaxis: Not indicated VTE Prophylaxis: Sub-Q Heparin (Unfractionated) VTE Mechanical Devices: Intermittant Pneumatic CD Resuscitation Status: CPR: Attempt Resuscitation Time spent 20 minutes Zaida Aguirre MD Mar 11, 2017 14:58
[2017-03-11] MEDS ORDERED: Magnesium Sulf 2 Gm/50mL Water 2 GM in IV Premix 1 EACH IV ONE (15:00)
--- NOTE | 2017-03-11 18:29 | NUR ---
Pain Pt reports aching leg pain 9/10. Requests gabapentin for relief. Administered per schedule. Pt reports pain is reduced to 3/10. Instructed to use call light for ambulation, bed alarm on. Later in shift pt reports pain has returned at 8/10. Administered Percocet PRN per order. Pt states pain is reduced to 6/10 but requests additional gabapentin dose. Informed pt that next gabapentin dose will be later in shift. Pt willing to wait.
[2017-03-11] MEDS: cefTRIAXone Inj 2,000 MG in Dextrose 5% Minibag Plus 50 ML IV SCH (21:00)
[2017-03-12] MEDS: Heparin 5,000 Unit/mL Inj SUBQ SCH ×2 (01:02→08:36)
[2017-03-12] MEDS: oxyCODONE-Acetamin 5-325 mg Tablet PO PRN (03:23)
--- NOTE | 2017-03-12 06:13 | NUR ---
NOC PT slept well through the night. MEdicated twice for leg and back pain with good relief. VS WNL. PT up to BSC independently. No BM as of yet. BG was 135 at 2200. PT educated about diabetes. PT stated that "i though I was over that" and does not check BG at home. NO tele. NS infusing at 100ml per order. WIll CTM. Plan is for d.c to SNF or ???
[2017-03-12 06:19] VITALS: BP_SYST 101; BP_SYST 125; BP_SYST 138; BP_DIAS 66; BP_DIAS 76; BP_DIAS 89; PULSE 68; RESP 16; O2SAT 95
[2017-03-12] MEDS: 0.9% Sodium Chloride 1,000 ML IV SCH (08:01)
[2017-03-12] MEDS: Insulin LISPRO 300 Unit/3 mL Inj SUBQ SCH ×2 (08:10→11:25)
[2017-03-12 08:18] VITALS: PULSE 77; RESP 16; O2SAT 92
[2017-03-12] MEDS: Polyethylene Glycol (PEG) 17 Gm Powder PO PRN (10:32)
--- NOTE | 2017-03-12 11:38 | PCM.DIMED ---
Discharge Instructions Date of Service Mar 12, 2017 Dates of Hospitalization Mar 09, 2017 at 01:12 Discharge Diagnosis Discharge Diagnosis Recurrent syncope episodes, urinary tract infection, type II diabetes, orthostatic hypotension Diet Discharge Diet: Diabetic Activity Discharge Activity: Home Health Phyical Therapy (, RN, social media marketing analyst) Call your provider Call your provider for: Fever or Chills, Shortness of breath, Bleeding, Chest pain, Vomitting, Excessive diarrhea, Weakness (unilateral) Patient Instructions Follow-up Provider: Wilda Kan MD Follow-up with PCP in: 1 week (, sooner if problems) Zaida Aguirre MD Mar 12, 2017 11:38
[2017-03-12] MEDS ORDERED: GABA400C PO (11:43)
[2017-03-12] MEDS ORDERED: FLUD0.1T PO (11:43)
--- NOTE | 2017-03-12 11:55 | PCM.DC.MED ---
Discharge Summary Date of Service Mar 12, 2017 Dates of Hospitalization Date of Hospital Admission Mar 09, 2017 at 01:12 Date of Discharge: Mar 12, 2017 Providers: Admitting Physician: Reuben Zayas MD Primary Care Physician: Wilda Kan MD Attending Physician: Zaida Aguirre MD Diagnosis at Time of Discharge Diagnosis at Time of Discharge Recurrent syncope episodes, type II diabetes, orthostatic hypotension Procedures XRay, CTs & MRIs PROCEDURE: CT ANGIO CHEST PULMONARY EMBOLISM ([id number]) INDICATIONS: recurrent syncope, tachycardia, elevated ddimer TECHNIQUE: After the administration of intravenous contrast, 2 mm thick sections acquired from the pulmonary apices to the posterior costophrenic angles. 3-dimensional maximum intensity projection (MIP) coronal and sagittal reformats were then acquired through the thorax. For radiation dose reduction, the following was used: automated exposure control, adjustment of mA and/or kV according to patient size. COMPARISON: None. FINDINGS: Image quality: Excellent. Pulmonary arteries: Pulmonary arteries are normal in size, and demonstrate no intraluminal filling defects to suggest central pulmonary embolism. Lungs and pleura: Emphysematous changes are present. There is increased pulmonary vascularity. No pleural effusions or pneumothorax. Central and peripheral airways are patent. Mediastinum: Heart size is normal, without pericardial effusion. No mediastinal or hilar adenopathy. Thoracic aorta is normal in caliber and enhancement. Esophagus is normal in caliber, without hiatal hernia. Atherosclerotic vascular disease is noted. Bones and chest wall: No suspicious bony lesions. Ribs and thoracic spine appear intact throughout. Thyroid gland is unremarkable. No axillary or supraclavicular adenopathy. Abdomen: Visualized upper abdominal solid organs appear normal in the early arterial phase of enhancement. IMPRESSION: 1. No visualized pulmonary embolism. 2. Increased pulmonary vascularity suggestive of edema. Dictated by: Bella Cruz M.D. on 03/09/2017 at 7:25 Approved by: Bella Cruz M.D. on 03/09/2017 at 7:27 PROCEDURE: CT BRAIN WITHOUT CONTRAST ([id number]) INDICATIONS: syncope, head injury TECHNIQUE: Noncontrast 4.5 mm thick angled axial sections acquired from the foramen magnum to the vertex, with coronal reformats. COMPARISON: [facility], MR, MR BRAIN WO CON, 03/03/2017, 16:37. [facility], CT, CT ANGIO BRAIN AND NECK, 03/03/2017, 14:56. [facility], MR, MR ANGIO HEAD WO CON, 03/02/2017, 10:56. FINDINGS: Image quality: Excellent. CSF spaces: Basal cisterns are patent. No extra-axial fluid collections. The ventricles are symmetric in size and shape. Brain: No intracranial bleeds or masses. There is cerebral volume loss for age , with resultant ventricular and sulcal prominence. There are periventricular and deep white matter chronic small vessel ischemic changes. There is intracranial internal carotid artery atherosclerosis. Skull and face: Calvarium and visualized facial bones appear intact, without suspicious lesions. Sinuses: Visualized sinuses and mastoids are clear. IMPRESSION: 1. No acute intracranial process. Stable interval examination compared to CT and MR Brain dated 03/03/17. 2. Moderate atrophy and chronic microvascular ischemic changes. Dictated by: Bella Cruz M.D. on 03/08/2017 at 20:21 Approved by: Bella Cruz M.D. on 03/08/2017 at 20:22 Brief History Ms. Jacobs is a 76-year-old female with a past medical history including type II diabetes, hypertension, and chronic pain, that presented to the emergency department for ground-level fall 2 secondary to lightheaded dizziness with syncopal episode. She was recently hospitalized from 03/01/2017 to 03/04/2017 for similar. Due to patient's report of head trauma, stat CT of the head was obtained, which did not reveal any acute intracranial abnormalities. Due to the nature of recurrent admissions for the same, and distance of patient's home , patient was admitted under observation status for recurrent syncope, in addition to orthostatic hypotension, likely secondary to dehydration, and suspected urinary tract infection. - Hospital day one Patient states that the admission, she experienced 2 ground-level falls, secondary to feeling lightheaded and dizzy, with momentary loss of consciousness , with reported head trauma. She denies any recent onset of fever, chills, nausea, vomiting, dysuria, abdominal pain, chest pain, shortness of breath, or symptoms of cough. She states since her recent discharge 03/04/2017, she has attempted to increase her hydration status. She denies any gait normality is at baseline, and does not use a walker or cane. She is uncertain why she keeps experiencing near syncopal or syncopal episodes. She reports she lives in a recreational vehicle in [place], [place], and she reports she lives alone. Of note: Recent hospitalization for similar dated 03/01/2017 until 03/04/2017; patient completed numerous studies for evaluation, including multiple imaging studies such as MRA, neurology consultation, CT of the head and neck, echocardiogram, all of which had returned as negative, without any identifiable etiologies for her presenting symptoms; diagnoses at discharge included BPPV, orthostatic hypotension secondary to age, uncontrolled diabetes, side effect of pain medications, and dehydration. In the emergency department, T 36.7, pulse 107, respiratory 18, blood pressure 106/71, 99% on room air; ED staff reports that she was positive for orthostatics , and also experienced lightheadedness and increased heart rate when completing the evaluation. Initial labs revealed white count 10.4, with no shift, hemoglobin 16.7, hematocrit 47.4, sodium 136, potassium 4.3, BUNs 32, creatinine 1.05, glucose 162, LFTs were within range, troponin negative 2; d- dimer 1.15, UA revealed hazy appearance with trace leukocyte esterase, negative nitrites, 11-50 white blood cells, moderate epithelial contaminants noted, culture was reflexed. Imaging included CT of the hand, which did not reveal any acute intracranial processes, chest x-ray which also did not reveal any acute abnormalities, and CT angiogram, which did not reveal any evidence of pulmonary emboli. Initial therapies included 2 L normal saline, gabapentin 600 mg 1, and ceftriaxone 2 g IV 1. Patient was transported to medical floor in stable condition. Hospital Course Ms. Jacobs is a 76-year-old female with a past medical history including type II diabetes, hypertension, and chronic pain, that presented to the emergency department for ground-level fall 2 secondary to lightheaded dizziness with syncopal episode. She was recently hospitalized from 03/01/2017 to 03/04/2017 for similar. Due to patient's report of head trauma, stat CT of the head was obtained, which did not reveal any acute intracranial abnormalities. Due to the nature of recurrent admissions for the same, and distance of patient's home , patient was admitted under observation status for recurrent syncope, in addition to orthostatic hypotension, likely secondary to dehydration, and suspected urinary tract infection. - Hospital day one Ground-level fall secondary to recurrent syncopal episodes, acute, present on admission, ongoing - Patient reports 2 episodes ground-level fall secondary to syncope/near syncope day of admission - May be secondary to underlying infection, dehydration, medication adverse effects - No recent admission: March 01 to 03/04/2017 for similar - Thorough workup has been completed over recent weeks, including numerous imaging studies, and including neurological consultation at previous hospitalization with Dr. Salas - CTA negative for pulmonary emboli - EKG negative for dysrhythmias; QTc 439 - Repeat orthostatics - Continue telemetry - Improve hydration - Hold blood pressure medications, and citalopram - Consideration for other causes, such as autonomic, ongoing BPPV, deconditioning - PT eval which recommended further physical therapy at [facility] -Patient remains with orthostatic changes so we will go ahead and continue with IV fluid hydration and recheck orthostatics later this afternoon -Discussed with patient that may need Florinef to maintain better blood pressure with standing. -Even after IV fluids she still remains to have orthostatic hypotension. This may be related to an autonomic dysfunction secondary to diabetes so we will go ahead and initiate Florinef 0.1 mg by mouth daily. Patient will need follow-up for this in approximately a week by PCP. Suspected UTI, acute, present on admission, under therapy - On admit: UA trace leukocyte esterase, negative nitrite, few bacteria, with moderate epithelial contaminant, and 11-50 white blood cells - Unlikely infectious, but given recent history of decreased hydration, infection may/may not be an early stages of development - Patient denied any history of dysuria, fever, chills at time of admission - In ED, patient received ceftriaxone 2 g IV 1 - We will continue ceftriaxone, consider transition to oral when ready for discharge -Patient's final culture was mixed urogenital rena hence DC'd IV Rocephin day of discharge Elevated d-dimer, chronicity unknown, present on admission, under evaluation - On admit: 1.15 - CTA on admission negative for pulmonary emboli - No evidence of DVT in upper or lower extremities - May be secondary to underlying infection, acute renal failure, recent trauma secondary to ground-level falls - No intervention at this time, determined and treat underlying etiology Erythrocythemia, likely acute, present on admission, under evaluation - On admit: Hemoglobin 16.7; Hb noted 12.5 at previous discharge date - Likely secondary to hemoconcentration due to dehydration - Resolved with IV fluid hydration Diabetes mellitus, presumed type II, chronic, presumed stable - Previous admit revealed A1c 7.7 -resume her usual medication regimen Chronic pain, presumed stable - Resume home medications when verified, and if appropriate - Acetaminophen and heating packs only at this time - Consideration that narcotics are contributing to patient's dizziness, and subsequent ground-level falls -Changed her gabapentin dosing to 3 times a day 400 mg Depression, chronic, presumed stable - Holding citalopram at this point secondary to sodium lowering effects Exam Vital Signs (Last) Date Time Temp Pulse Resp B/P Pulse Ox O2 Delivery O2 Flow Rate FiO2 03/12/17 08:18 77 16 92 Room Air 03/12/17 06:19 36.6 138/89 125/76 101/66 Exam Constitutional: Elderly female eating lunch currently no complaint. Head: Normocephalic atraumatic Chest: Clear to auscultation Cor: Regular rate and rhythm S1-S2 Abdomen: Soft nontender bowel sounds present Extremities: No pedal edema Psych: Mood and affect are appropriate Skin: No rashes Neuro: Alert and oriented 3, motor strength is intact bilaterally Test 03/08/17 19:40 03/08/17 23:31 03/08/17 23:50 03/09/17 07:35 Prothrombin Time 10.7sec (8.1-12.5) Prothromb Time International Ratio 1.00ratio D-Dimer 1.15mg/L FEU (<0.50) Pro-B-Type Natriuretic Peptide 228.8pg/mL (0-738) Troponin T 0.010ug/L (0.0-0.011) Urine Color Yellow (YELLOW) Urine Appearance Hazy (CLEAR,HAZY) Urine pH 5.0 (5.0-8.0) Urine Specific [place] 1.010 (1.003-1.035) Urine Protein Tracemg/dL (NEG,TRACE) Urine Glucose (UA) Negativemg/dL (NEGATIVE) Urine Ketones Tracemg/dL (NEGATIVE) Urine Occult Blood Trace (NEGATIVE) Urine Nitrite Negative (NEGATIVE) Urine Bilirubin Negative (NEGATIVE) Urine Urobilinogen Normalmg/dL (NORMAL) Urine Leukocyte Esterase Trace (NEGATIVE) Urine RBC 0-2/hpf (0-2) Urine WBC 11-50/hpf (0-5) Urine Epithelial Cells Moderate/hpf (NONE-MOD) Urine Crystals None seen (NONE SEEN) Urine Bacteria Few/hpf (NONE-FEW) Urine Hyaline Casts 5/20/lpf (NONE) Urine Granular Casts None seen (NONE SEEN) Urine Waxy Casts None seen (NONE SEEN) Urine Red Blood Cell Casts None seen (NONE SEEN) Urine White Blood Cell Casts None seen (NONE SEEN) Urine Mucus Present (None Seen) Urine Trichomonas None seen (NONE SEEN) Urine Yeast None (NONE SEEN) Urinalysis Comment Urine Culture Reflexed Indicated Total Bilirubin 0.2mg/dL (0.0-1.2) Aspartate Amino Transf (AST/SGOT) 12U/L (0-50) Alanine Aminotransferase (ALT/SGPT) 14U/L (0-32) Alkaline Phosphatase 79U/L (25-165) Total Protein 5.4g/dL (6.4-8.4) Albumin 3.3g/dL (3.4-5.0) Test 03/11/17 10:38 White Blood Count 5.7th/mm3 (3.8-10.1) Red Blood Count 3.88mil/mm3 (3.90-5.20) Hemoglobin 13.0g/dL (12.0-15.6) Hematocrit 36.6% (35.0-46.0) Mean Corpuscular Volume 94.3fL (81-100) Mean Corpuscular Hemoglobin 33.5pg (27.0-35.0) Mean Corpuscular Hemoglobin Concent 35.5% (32.0-37.0) Red Cell Distribution Width 11.7% (12.3-15.4) Platelet Count 276bil/L (150-400) Neutrophils (%) (Auto) 46.9% (40-74) Lymphocytes (%) (Auto) 37.8% (14-46) Monocytes (%) (Auto) 12.0% (4-12) Eosinophils (%) (Auto) 1.6% (0-5) Basophils (%) (Auto) 0.7% (0-3) Sodium Level 138mEq/L (134-144) Potassium Level 3.8mEq/L (3.5-5.2) Chloride Level 99mEq/L (97-108) Carbon Dioxide Level 24mmol/L (18-29) Blood Urea Nitrogen 9mg/dL (8-27) Creatinine 0.62mg/dL (0.57-1.00) Estimat Glomerular Filtration Rate 134mL/min (>59) Glucose Level 142mg/dL (60-99) Calcium Level 8.9mg/dL (8.5-10.1) Magnesium Level 1.5mg/dL (1.6-2.6) Thyroid Stimulating Hormone (TSH) 3.080uIU/mL (0.450-4.500) Free Thyroxine 1.23ng/dL (0.82-1.77) Discharge Medications Discharge Medications Citalopram (Citalopram) 20 Mg Tablet 20 MG PO DAILY (Reported) Fludrocortisone Acetate (Fludrocortisone Acetate) 0.1 Mg Tablet 0.1 MG PO UD Prescribed by: ZAIDA AGUIRRE MD Gabapentin (Neurontin) 400 Mg Capsule 400 MG PO TID Prescribed by: ZAIDA AGUIRRE MD Metformin (Metformin) 500 Mg Tablet 500 MG PO BID Prescribed by: HAWK BARRAGAN DO Triamcinolone Acetonide (Triamcinolone Acetonide Ointment) 80 Gm Oint...g. 1 APPLIC TOP DAILY (Reported) As needed Prochlorperazine Maleate (Prochlorperazine) 10 Mg Tablet 10 MG PO DAILY PRN PRN For Nausea/Vomiting (Reported) oxyCODONE-Acetaminophen 10-325 mg (oxyCODONE-Acetaminophen 10-325 mg) 1 Each Tablet 1 TABLET PO Q6H PRN PRN For Pain (Reported) Followup Plan Discharge Diet: Diabetic Discharge Activity: Home Health Phyical Therapy Follow-up Provider: Wilda Kan MD Follow-up with PCP in: 1 week (, sooner if problems) Time spent 45 minutes copies to: Wilda Kan MD, Cheryl A MD Mar 12, 2017 11:55
[2017-03-12 12:38] VITALS: BP 184/97; PULSE 85; RESP 16; O2SAT 95
[2017-03-12 12:46] VITALS: BP 160/87; PULSE 85
[2017-03-12 13:09] VITALS: BP 164/87
--- NOTE | 2017-03-12 13:37 | NUR ---
Social Work-discharge: Data:EMR Reviewed. Pt is on day 3 of hospitalization for UTI per H&P. Pt is medically stable for discharge. PT has cleared pt for home with HH services, pt ambulating 250ft. SW informed [facility] of the discharge and provided them with orders and F2F for RN,PT, and [employer]LECT[employer]IC APPRENTICE. SW updated pt and she is agreeable to plan. [facility] can open with pt either tomorrow or . Pt states her son in law Don will provide transport home today. All updated and agreeable to plan. Assessment:Pt who would benefit from HH. Plan:Pt to discharge home today via POV. 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 [facility] to either see pt tomorrow or . All updated and agreeable to plan. TARA Davis
--- NOTE | 2017-03-12 14:31 | NUR ---
Discharge Reviewed discharge paperwork, care notes and medications with pt - disclaimer signed. IV DCd intact, home med picked up from pharmacy, all belongings with pt. Pt report chronic leg pain 4/10 reduced from earlier and denies SOB. Pts Son-inlaw picking up and driving home. Pt escorted curbside in WC, no s/sx of distress.
== END 2017-03-12 14:24 | disposition home health service (06) | DRG 312 ==
LOC: SED 19:22 → MPC 03-09 01:12 → OBSVTOIN 03-09 01:12
PROVIDERS: ADMIT Hospitalist; ATTEND Specialist
DX: I95.1 Orthostatic hypotension (principal); N39.0 Urinary tract infection, site not specified; J44.9 Chronic obstructive pulmonary disease, unspecified; E11.9 Type 2 diabetes mellitus without complications; I10 Essential (primary) hypertension; E86.0 Dehydration; G89.29 Other chronic pain; F17.210 Nicotine dependence, cigarettes, uncomplicated; R29.6 Repeated falls; F32.9 Major depressive disorder, single episode, unspecified; Z88.0 Allergy status to penicillin

== ENCOUNTER 2017-03-24 09:59 | Emergency (ER) | payer MEDICARE, OTHER ==
[~2017-03-24] VITALS: Ht 165.1 cm; Wt 72.7 kg
[~2017-03-24 09:59] MED LIST changes: +FLUD0.1T PO; -FOSI40TA2 PO; -GABA300C PO; +GABA400C PO; +OXYC-466 PO; -OXYC1TAB24 PO; +PROC10TA PO; +TRIA80OI TOP
[2017-03-24 10:07] VITALS: BP 133/74; PULSE 95; RESP 16; O2SAT 97
--- NOTE | 2017-03-24 10:25 | ED.REPORT ---
HPI-Extremity Problem Lower Date of Service Mar 24, 2017 ED Provider: Doc,Ed MD The pt is a 76y/o female with hx of arthritis who presents to the ED complaining of L leg pain onset a week ago. The pt describes the pain as "achy" and it radiates from her left foot to the inguinal region. She reports the pain started "out of blue," and denies any mechanism of injury. The pt denies chest pain, SOB, syncope, LE edema, or any other symptoms. The pt also complains of her chronic lower back pain. She last took Oxycodone for her pain at 0700, but denies improvement. Pt was admitted 03/09-03/12 for syncope and 2 glf. She has an appointment with her PCP in 2 days. Nursing Notes Stated Complaint: L LEG PAIN Chief Complaint: Extremity Trauma Nursing Notes Reviewed: Yes ([employer] reconciled) Allergies: Coded Allergies: Penicillins (Verified Allergy, Mild, RASH, 03/24/17) Uncoded Allergies: SKELETAL MUSCLE RELAXANTS (Allergy, Unknown, 07/28/04) PASSES OUT "BREAKS OUT" Scheduled Citalopram (Citalopram) 20 Mg Tablet 20 MG PO DAILY Fludrocortisone Acetate (Fludrocortisone Acetate) 0.1 Mg Tablet 0.1 MG PO UD Gabapentin (Neurontin) 400 Mg Capsule 400 MG PO TID Metformin (Metformin) 500 Mg Tablet 500 MG PO BID Triamcinolone Acetonide (Triamcinolone Acetonide Ointment) 80 Gm Oint...g. 1 APPLIC TOP DAILY Scheduled PRN Prochlorperazine Maleate (Prochlorperazine) 10 Mg Tablet 10 MG PO DAILY PRN PRN For Nausea/Vomiting oxyCODONE (oxyCODONE) 5 Mg Tablet 5 MG PO q4-6H PRN PRN For Pain oxyCODONE-Acetaminophen 10-325 mg (oxyCODONE-Acetaminophen 10-325 mg) 1 Each Tablet 1 TABLET PO Q6H PRN PRN For Pain General Time Seen by MD: 10:24 Chief Complaint Other (left leg pain) Hx Obtained From: Patient Arrived By: Walk-in Onset Occurred: 1 week ago Symptom Duration: Since onset Location: : Leg left Quality: Aching Severity: Current: Moderate Severity: Maximum: Moderate Pertinent Negative: Pt denies other symptoms Pertinent Negative: Exacerbated by nothing, Relieved by nothing Recent Healthcare: Recent doctor visit, Recent hospitalization Similar Sx Previous: No Past Medical History Past Medical History Notes: Admitted to [facility] for dehydration and syncope Past Medical History Chronic back pain- Administers Morphine and Oxycodone daily Arthritis Reports: COPD, Diabetes mellitus, GERD, Hypertension Reports: Depression Past Surgical History 6 inches of colon removed after diagnosed with diverticulitis. Family History Mother secondary to asthma Father secondary to prostate cancer Smoking History Current Every Day Smoker Social History Alcohol Use: Denies alcohol use Drug Use: Denies drug use Ambulatory Status Independent Review of Systems Musculoskeletal: Reports: Back pain (chronic ), Extremity pain (left leg) Complete sys rev & neg: except as marked. Respiratory: Denies: Shortness of breath Cardiovascular: Denies: Chest pain, Edema, Syncope Physical Exam Clear cause of symptom is not evident on exam. Initial Vital Signs Vital Signs (First) Date Time Temp Pulse Resp B/P Pulse Ox O2 Delivery O2 Flow Rate FiO2 03/24/17 10:07 37.4 95 16 133/74 97 Room Air Initial VS: Reviewed, Vital signs normal Head / Eyes: Atraumatic, Normocephalic Neck: Supple Respiratory: Breath sounds normal, Clear to auscultation, No respiratory distress Cardiovascular: Regular rate & rhythm, Heart sounds normal Skin: Warm, Dry Neurologic: Alert, Oriented, Nonfocal Psychiatric: Mood/affect normal, Behavior normal Lower Extremity / Pelvis / MS: Atraumatic, Inspection NL, No swelling, Non- tender, No deformity, Neurologic intact, Vascular intact Negative straight leg raise Ankle / Foot: Atraumatic, Inspection NL, Full range of motion, Non-tender Foot is warm, bounding pulses, good cap refill Interpretation & Diagnostics Interpretation & Diagnostics: Preliminary Ultrasound read: negative for DVT, positive for superficial calf vein thrombosis Lab Results Interpretation Test 03/24/17 10:36 Hold Urine Received (Received) Re-Eval/Medical Decision Med Decision/Clinical Course This is a 76-year-old now he was recently hospitalized for recurrent syncope of unclear etiology presents complaining of left leg pain. She did have a workup for PE that was negative. She is denying swelling, denies trauma, denies neurologic symptoms, denies redness, reports the whole leg is sore. On exam she appears well, she's got strong palpable pulses with no signs of ischemia, no redness, cellulitis, no swelling or overt physical exam findings of DVT are evident. Patient has preserved range of motion is neurologically intact. Ultrasound left lower extremity was read as positive for superficial vein thrombosis lower calf, but not of deep vein thrombosis. Current data argue that while aggressive anticoagulation can prevent progression to DVT, there is an equivalent and potentially harmful complication rate from heavy-duty anticoagulation-Pamela recommendation initiate aspirin, and repeat the ultrasound in the next 1-2 weeks were reviewed with the patient. She was comfortable with this. Upon little unusual that her left leg pain is caused by such a small calf vein finding, but an altered dangerous etiology for the leg pain is not identified. Features to suggest sciatica, she has a negative straight opposite straight leg raise. She is ambulatory with her walker. She is on chronic oxycodone as I understand it, spilling out and I've written for #15 tabs to get through to her PCP. The patient is discharged in stable condition Source of Hx: Old records Re-Evaluation/Progress : Time of Eval: 13:10 Re-Evaluation/Progress Note: Pt rechecked. Informed pt of diagnosis of superfical thrombosis rather than a deep vein thrombosis, and plan for discharge. The pt understands and agrees with plan for discharge. F/U instructions and RTER warnings given. All questions addressed at this time. Differential Diagnosis: Negative: Abrasion, Achilles tendon rupture, Ankle dislocation, Arterial occlus/ischemia, Cellulitis, Compartment syndrome, Hematoma, Knee disloc ant, Knee disloc post, Laceration, Subungual hematoma, Venous thromboembolism actuet superficial venous thrombosis of left lower extremity Counseled Regarding: Diagnosis, Lab results, Need for follow-up, When/why to return to ED Discharge & Departure Impression: Primary Impression: Left leg pain Additional Impression: Acute superficial venous thrombosis of left lower extremity Disposition: Home Discharge Condition All VS Reviewed: Yes Condition: Stable Additional Instructions: 1. A dangerous cause of the left leg pain was not identified. 2. Your ultrasound does reveal a superficial clot in the small vessels of the lower leg. It would be surprising for this to be causing all of your leg pain, but another cause of the pain was not found. 3. Take aspirin 325mg once a day. 4. You will need a repeat ultrasound in ~10 days to recheck as while most of the time these small clots resolve, occasionally they can progress and require stronger blood thinners. 5. Take tylenol 1000mg three times a day for pain. IF needed for more severe pain you can use your oxycodone. I have written for #[address] Dow's office tomorrow for follow up. Referrals: Wilda Kan MD (PCP) Scribe Attestation Portion of this note were transcribed by Abdiel Rose and Mary Patterson. I , Dr. Felix Laughlin personally performed the history, physical exam and medical decision-making; I reviewed and confirmed the accuracy of the information in the transcribed note. Signed by: Abdiel Rose and Deborah García, 03/24/17. copies to: Wilda Kan MD, Matthew F MD Mar 24, 2017 10:25 Abdiel Rose Mar 24, 2017 10:44 MARY PATTERSON Mar 24, 2017 11:52
[2017-03-24] MEDS ORDERED: OXYC-530 PO (13:16)
[2017-03-24 13:25] VITALS: BP 155/89; PULSE 89; RESP 16; O2SAT 96
--- NOTE | 2017-03-24 13:34 | DRSVH ---
PROCEDURE: US VEINOUS LEG DUPLEX UNILATERAL, LEFT INDICATIONS: Lower extremity pain. TECHNIQUE: Real-time imaging, as well as color and pulse Doppler interrogation, were performed of the lower extr emity deep veins from the inguinal ligament to the popliteal fossa. COMPARISON: None. FINDINGS: Nonocclusive thrombus within the left popliteal vein. IMPRESSION: Nonocclusive popliteal deep venous thrombosis. Dictated by: Julee Amin M.D. on 03/24/2017 at 13:32 Approved by: Julee Amin M.D. on 03/24/2017 at 13:33
[2017-03-24 13:44] VITALS: BP 155/89; PULSE 89; RESP 16; O2SAT 96
[2017-03-24 18:37] LABS: APPEARANCE,URINE CLEAR (CLEAR,HAZY); COLOR,URINE DARK YELLOW (YELLOW); OCCULT BLOOD,URINE NEGATIVE (NEGATIVE); PH,URINE 5.5 (5.0-8.0); UROBILINOGEN,URINE NORMAL (NORMAL)
== END 2017-03-24 13:45 | disposition home or self-care (01) ==
LOC: SED 09:59
DX: I82.812 Embolism and thrombosis of superficial veins of left lower extremity (principal); I10 Essential (primary) hypertension; J44.9 Chronic obstructive pulmonary disease, unspecified; K21.9 Gastro-esophageal reflux disease without esophagitis; E11.9 Type 2 diabetes mellitus without complications; F17.200 Nicotine dependence, unspecified, uncomplicated; Z88.0 Allergy status to penicillin